=== PATIENT | female | born 1990 | race Caucasian/White ===

== ENCOUNTER 2016-09-19 15:40 | Emergency (ER) | payer OTHER ==
--- NOTE | 2016-09-19 16:10 | ED ---
General Adult HPI - General Chief complaint: Extremity Problem,Nontraumatic Stated complaint: Leg Pain Time Seen by Provider: 09/19/16 16:05 Source: patient, RN notes reviewed Mode of arrival: ambulatory Limitations: no limitations - History of Present Illness Initial comments: This is a 26-year-old female who presents with bilateral ankle pain. Patient states she had nerve conduction studies Saturday and has had soreness to the bilateral ankles and shinsand the areas where a needle was used for the study. Patient states she has a history of bilateral ankle surgery after a fall a few years ago. Patient states she's had pain to bilateral aspects of both ankles ever since and this was the reason for the nerve studies. Patient is able to ambulate without difficulty. Patient denies any numbness/tingling or weakness but patient states she feels like her legs are going to give out when she walks. Patient has had no injury or fall. Patient states she has a past medical history significant for degenerative disc disease and has chronic back pain. Patient denies any recent injury to the back. Patient also complains of a cough she has had for one week. Patient also admits to runny nose. Patient diagnosed with bronchitis and given a Z-Tony. Patient states she has some chills but no measured fever. Patient states the cough persisted even after her course of antibiotics. Patient denies any chance of being . Patient denies any recent fever, chills, shortness breath, chest pain, abdominal pain, nausea/vomiting/diarrhea, back pain, hematuria, headache, or visual changes, or any other complaints. - Related Data Home Medications Medication Instructions Recorded Confirmed Gabapentin [Neurontin] 300 mg PO BID 09/19/16 09/19/16 Previous Rx's Medication Instructions Recorded Ibuprofen [Motrin] 600 mg PO Q8HR PRN #20 tab 05/16/15 Allergies Allergy/AdvReac Type Severity Reaction Status Date / Time ciprofloxacin [From Cipro] AdvReac Unknown Verified 09/19/16 15:57 ciprofloxacin HCl AdvReac Unknown Verified 09/19/16 15:57 [From Cipro] Penicillins AdvReac Unknown Verified 09/19/16 15:57 Tetanus Vaccines and Toxoid AdvReac Unknown Verified 09/19/16 15:57 [Tetanus Vaccines & Toxoid] Review of Systems ROS Statement: Those systems with pertinent positive or pertinent negative responses have been documented in the HPI. ROS Other: All systems not noted in ROS Statement are negative. Past Medical History Past Medical History: No Reported History Additional Past Medical History / Comment(s): buldging discs, left breast lump History of Any Multi-Drug Resistant Organisms: None Reported Past Surgical History: Adenoidectomy, Section, Tonsillectomy Additional Past Surgical History / Comment(s): left ankle, Past Psychological History: No Psychological Hx Reported Smoking Status: Current every day smoker Past Alcohol Use History: Occasional Past Drug Use History: None Reported General Exam - General Exam Comments Initial Comments: General: The patient is awake and alert, in no distress, and does not appear acutely ill. Eye: Pupils are equal, round and reactive to light, extra-ocular movements are intact. No nystagmus. There is normal conjunctiva bilaterally. No signs of icterus. Ears: TMs pink and pearly with intact cone of light bilaterally. Normal external ear canals Nose: Nasal turbinates pink and moist Mouth and throat: There are moist mucous membranes and no oral lesions. Neck: The neck is supple, there is no tenderness or JVD. Cardiovascular: There is a regular rate and rhythm. No murmur, rub or gallop is appreciated. Respiratory: Lungs are clear to auscultation, respirations are non-labored, breath sounds are equal. No wheezes, stridor, rales, or rhonchi. Musculoskeletal: Generalized tenderness to bilateral shins and ankles. There is no swelling, erythema or ecchymosis. Patient has full range of motion, is ambulatory in the EC, strength is 5/5 and sensation intact. Posterior tibial pulses are 2+ bilaterally. Capillary refill is normal at less than 2 seconds. Neurological: A&O x 3. CN II-XII intact, There are no obvious motor or sensory deficits. Coordination appears grossly intact. Speech is normal. Skin: Skin is warm and dry and no rashes or lesions are noted. Psychiatric: Cooperative, appropriate mood & affect, normal judgment. Limitations: no limitations Course Vital Signs 09/19/16 09/19/16 15:51 17:39 Temperature 97.6 F 98.2 F Pulse Rate 91 86 Respiratory 18 16 Rate Blood Pressure 134/82 132/80 O2 Sat by Pulse 99 99 Oximetry Medical Decision Making - Medical Decision Making This is a 26-year-old female who presents with bilateral craft and ankle pain along with cough 7 days. On physical exam patient is afebrile in the EC. Lungs are clear to auscultation. Dry cough present on exam. Generalized tenderness to bilateral shins and ankles. There is no swelling, erythema or ecchymosis. Patient has full range of motion, is ambulatory in the EC, strength is 5/5 and sensation intact. Posterior tibial pulses are 2+ bilaterally. Capillary refill is normal at less than 2 seconds. A chest x-ray was done and reviewed showing: No acute cardiopulmonary process. Reported by Dr. Gonzalez. Influenza was checked and was negative. An x-ray lumbar spine was done and reviewed showing: Degenerative disc disease, consider lumbar MRI. Patient states that she knows about her history of degenerative disc disease. I discussed that the tenderness she is feeling could be caused by the procedure she had on Saturday for nerve testing. I discussed rest, ice, elevate and Tylenol and Motrin for the pain. I discussed that patient most likely has a viral bronchitis causing her cough. I discussed [id number]-[id number] cough medicines. I discussed Tylenol and Motrin for any pain. I discussed that patient needs to follow-up with her film waxer who ordered the nerve studies in 1-2 days. I discussed return parameters. Discussed that patient should follow up with PCP in one to 2 days or return to the EC for any worsening symptoms or for any further concerns. Patient was receptive to this plan and patient will be discharged home. I discussed this case with attending physician Dr. Grey who agrees the plan as stated above. - Lab Data Lab Results 09/19/16 Range/Units 16:35 Influenza Type A RNA Not Detected (Not Detectd) Influenza Type B (PCR) Not Detected (Not Detectd) Disposition Clinical Impression: Bilateral ankle pain, Viral bronchitis Disposition: HOME SELF-CARE Condition: Good Instructions: Acute Bronchitis (ED) Additional Instructions: Please rest, ice, elevate and use Tylenol and Motrin for any pain. Please follow-up with your doctor in 1-2 days. Please continue [id number] decongestants and her cough medicines. Please continue to drink plenty of fluids and use Tylenol or Motrin for any fever. Please follow-up with family doctor in the next 2 days of symptoms have not improved. Please return to emergency room if the symptoms increase or worsen or for any other concerns. Referrals: Breann Rosenberg MD [Primary Care Provider] - 1-2 days Time of Disposition: 17:32
--- NOTE | 2016-09-19 16:33 | XR ---
EXAMINATION TYPE: XR chest 2V DATE OF EXAM: 09/19/2016 4:29 PM COMPARISON: Prior chest x-ray 04 October 2010 HISTORY: Cough and congestion TECHNIQUE: Frontal and lateral views of the chest are obtained on 3 images. FINDINGS: There is no focal air space opacity, pleural effusion, or pneumothorax seen. The cardiac silhouette size is within normal limits. The osseous structures are intact. IMPRESSION: No acute cardiopulmonary process.
--- NOTE | 2016-09-19 16:34 | XR ---
Lumbar spine HISTORY: Lower extremity weakness, pain and swelling 3 views of the lumbar spine, correlation to prior exam 11 February 2014 There is a levoscoliosis centered at L2. Lumbar vertebral bodies show preserved height, alignment, sybil ne mineralization. Loss of disc height present at L5-S1, there is associated spondylosis. IMPRESSION: Degenerative disc disease, consider lumbar MRI.
[2016-09-19 17:40] VITALS: BP 132/80; PULSE 86; RESP 16; TEMP 98.2
== END 2016-09-19 17:39 | disposition home or self-care (01) ==
LOC: EC 15:40
DX: M25.572 Pain in left ankle and joints of left foot (principal); M25.571 Pain in right ankle and joints of right foot; J20.8 Acute bronchitis due to other specified organisms; M51.36 Other intervertebral disc degeneration, lumbar region; F17.200 Nicotine dependence, unspecified, uncomplicated; Z88.0 Allergy status to penicillin; Z88.4 Allergy status to anesthetic agent; Z88.1 Allergy status to other antibiotic agents; Z79.899 Other long term (current) drug therapy
CPT/HCPCS: 71020; 72100; 87502; 99283

== ENCOUNTER → 2016-10-04 | Outpatient (CLI) | payer OTHER ==
--- NOTE | 2016-10-04 09:30 | USB ---
Reason for exam: follow-up at short interval from prior study. History: Family history of breast cancer in mother at age 28, breast cancer in paternal grandmother, and breast cancer in maternal aunt. Taking hormonal contraceptives for 1 year. 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 US Breast LT Left breast ultrasound includes all four quadrants, the retroareolar region and axilla. Finding demonstrates a 0.8 x 0.5 x 0.8cm oval, solid, hypoechoic lesion at 12 o'clock unchaged from previous and a 0.4 x 0.3 x 0.8cm oval, mixed lesion at 3 o'clock, probable lymph node. These results were verbally communicated with the patient and result sheet given to the patient on 10/04/16. ASSESSMENT: Benign, BI-RAD 2 RECOMMENDATION: Routine screening mammogram of both breasts. Per ACS guidelines.
== END ==
LOC: RADUSWWP 08:36
PROVIDERS: ATTEND Obstetrics & Gynecology
DX: R92.8 Other abnormal and inconclusive findings on diagnostic imaging of breast (principal)

== ENCOUNTER → 2016-11-23 | Outpatient (CLI) | payer OTHER ==
--- NOTE | 2016-11-23 23:13 | MR ---
EXAMINATION TYPE: MR lumbar spine wo con DATE OF EXAM: 11/23/2016 COMPARISON: NONE HISTORY: Low back pain x 5 years TECHNIQUE: T1 and T2 axial and sagittal images of the lumbar spine are submitted. FINDINGS: There is suggestion of abnormal signal within the posterior margin of the conus medullaris which is not included on the axial images.. At L1-2 there is no disc herniation, canal stenosis, or foraminal encroachment. At L2-3 there is no disc herniation, canal stenosis, or foraminal encroachment At L3-4 there is no disc herniation, canal stenosis, or foraminal encroachment. Hypertrophy of the fa cets. Tiny 7 mm cyst related to the posterior margin of the left facet appears outside of the spinal canal and within the paraspinal soft tissues. Still likely represents small synovial cyst. At L4-5 there is no disc herniation, canal stenosis, or foraminal encroachment. Hypertrophic change o f the facets. At L5-S1 there is disc desiccation with a large right paracentral disc herniation. There likely is ma ss effect upon the right nerve root. Facet arthropathy noted. IMPRESSION: 1. Large right paracentral disc herniation L5-S1 pressure the thecal sac and probable right-sided ner ve root impingement. Correlate clinically. 2. Question of abnormal signal within the conus medullaris posteriorly. Although this may be artifact ual this level was not included on the axial images of the lumbar spine MRI. Correlation with thoraci c spine MRI recommended to exclude spinal cord lesion.
== END | disposition home or self-care (01) ==
LOC: RADMRIMAIN 19:49
PROVIDERS: ATTEND Psychiatry & Neurology Pain Medicine
DX: M51.27 Other intervertebral disc displacement, lumbosacral region (principal); Z88.1 Allergy status to other antibiotic agents
CPT/HCPCS: 72148

== ENCOUNTER → 2016-12-04 | Outpatient (CLI) | payer OTHER ==
[2016-12-04 12:40] LABS: HCG,Quantitative Serum 384.6 mIU/mL
[2016-12-04 17:07] LABS: Hemoglobin A1C 5.2 % (4.2-6.1)
== END | disposition home or self-care (01) ==
LOC: LABWHC1 11:39
PROVIDERS: ATTEND Obstetrics & Gynecology
DX: O99.354 Diseases of the nervous system complicating childbirth (principal); G62.9 Polyneuropathy, unspecified; Z3A.00 Weeks of gestation of pregnancy not specified; Z79.899 Other long term (current) drug therapy
CPT/HCPCS: 36415; 82607; 83036; 84439; 84443; 84481; 84702

== ENCOUNTER → 2016-12-06 | Outpatient (CLI) | payer OTHER | END | disposition home or self-care (01) | LOC: LABWHC1 12:57 | PROVIDERS: ATTEND Obstetrics & Gynecology | DX: Z34.90 Encounter for supervision of normal pregnancy, unspecified, unspecified trimester (principal); Z3A.00 Weeks of gestation of pregnancy not specified | CPT/HCPCS: 36415; 84702 ==

== ENCOUNTER 2016-12-14 20:17 | Emergency (ER) | payer OTHER ==
[2016-12-14] MEDS ORDERED: SODIUM CHLORIDE 0.9% 1,000 ML IV STA (21:00)
[2016-12-14 21:33] LABS: Basophils % (A) 0 %; CH 32.2; Eosinophils # (A) 0.1 k/uL (0-0.7); Eosinophils % (A) 0 %; HCT 45.6 % (34.0-46.0); HDW 2.15; HGB 15.4 gm/dL (11.4-16.0); Luc # (Auto) 0.27; Luc % (Auto) 2; Lymphocytes % (A) 28 %; MCH 31.3 pg (25.0-35.0); MCHC 33.8 g/dL (31.0-37.0); MCV 92.4 fL (80.0-100.0); Mean Platelet Volume 7.3; Monocytes # (A) 0.6 k/uL (0-1.0); Monocytes % (A) 4 %; Neutrophils # (A) 9.4 k/uL (1.3-7.7); Neutrophils % (A) 65 %; RBC 4.94 m/uL (3.80-5.40); RDW 12.5 % (11.5-15.5); WBC 14.4 k/uL (3.8-10.6); WBC (Perox) 13.96
[2016-12-14 21:35] LABS: Appearance,Urine Cloudy (Clear); Bacteria,Urine Rare /hpf; Bilirubin,Urine Negative (Negative); Glucose,Urine (UA) Negative (Negative); Ketones,Urine Negative (Negative); Leukocyte Esterase,Urine Negative (Negative); Mucus,Urine Rare /hpf; Nitrite,Urine Negative (Negative); PH, Urine 5.5 (5.0-8.0); Particle Count 4028; Protein,Urine Negative (Negative); RBC,Urine 180 /hpf (0-5); Specific Gravity,Urine 1.007 (1.001-1.035); Squamous Epithelial Cell,Urine 2 /hpf (0-4); UA Billing (MACRO vs. MICRO) MICRO; Urobilinogen,Urine <2.0 mg/dL (<2.0); WBC,Urine 16 /hpf (0-5)
[2016-12-14 21:43] LABS: ALT 35 U/L (9-52); AST 19 U/L (14-36); Alkaline Phosphatase 65 U/L (38-126); Anion Gap 9 mmol/L; Blood Urea Nitrogen 5 mg/dL (7-17); Calcium 9.5 mg/dL (8.4-10.2); Carbon Dioxide 19 mmol/L (22-30); Chloride 110 mmol/L (98-107); Glucose 86 mg/dL (74-99); Non-African American GFR(MDRD) >60 (>60 ml/min/1.73 sqM); Potassium 3.8 mmol/L (3.5-5.1); Sodium 138 mmol/L (137-145); Total Protein 6.7 g/dL (6.3-8.2)
--- NOTE | 2016-12-14 21:55 | ED ---
Female Urogenital HPI - General Chief complaint: Urogenital Stated complaint: vaginal bleeding/early Time Seen by Provider: 12/14/16 20:54 Source: patient, RN notes reviewed Mode of arrival: ambulatory Limitations: no limitations - History of Present Illness Initial comments: 26-year-old female presents to the emergency Department chief complaint of vaginal bleeding in . Patient does not know how far along she is. They state that she started to have some vaginal bleeding today cramping that started yesterday. Patient is a . Patient states that she has not had any nausea or vomiting with this. Patient states the bleeding is heavy like a period. Patient denies any passage of tissue. Patient states she is not currently having any other symptoms. Patient denies any recent fever, chills, shortness of breath, chest pain, back pain, nausea vomiting, numbness or tingling, dysuria or hematuria, constipation or diarrhea, headaches or visual changes, or any other current symptoms. - Related Data Home Medications Medication Instructions Recorded Confirmed No Known Home Medications [No 12/14/16 12/14/16 Known Home Medications] Allergies Allergy/AdvReac Type Severity Reaction Status Date / Time cinnamon Allergy Swelling Verified 12/14/16 21:07 Fish Containing Products Allergy Rash/Hives Verified 12/14/16 21:07 [Fish] ciprofloxacin [From Cipro] AdvReac Unknown Verified 12/14/16 21:07 ciprofloxacin HCl AdvReac Unknown Verified 12/14/16 21:07 [From Cipro] Penicillins AdvReac Unknown Verified 12/14/16 21:07 Tetanus Vaccines and Toxoid AdvReac Unknown Verified 12/14/16 21:07 [Tetanus Vaccines & Toxoid] Review of Systems ROS Statement: Those systems with pertinent positive or pertinent negative responses have been documented in the HPI. ROS Other: All systems not noted in ROS Statement are negative. Past Medical History Past Medical History: No Reported History Additional Past Medical History / Comment(s): buldging discs, left breast lump History of Any Multi-Drug Resistant Organisms: None Reported Past Surgical History: Adenoidectomy, Section, Tonsillectomy Additional Past Surgical History / Comment(s): left ankle, Past Psychological History: No Psychological Hx Reported Smoking Status: Current every day smoker Past Alcohol Use History: Occasional Past Drug Use History: None Reported General Exam Limitations: no limitations General appearance: alert, in no apparent distress Neck exam: Present: normal inspection. Absent: tenderness, meningismus, lymphadenopathy Respiratory exam: Present: normal lung sounds bilaterally. Absent: respiratory distress, wheezes, rales, rhonchi, stridor Cardiovascular Exam: Present: regular rate, normal rhythm, normal heart sounds. Absent: systolic murmur, diastolic murmur, rubs, gallop, clicks GI/Abdominal exam: Present: soft, normal bowel sounds. Absent: distended, tenderness, guarding, rebound, rigid External exam: Present: normal external exam Speculum exam: Present: vaginal bleeding. Absent: tissue By manual exam: Present: normal by manual exam Neurological exam: Present: alert, oriented X3 Psychiatric exam: Present: normal affect, normal mood Skin exam: Present: warm, dry, intact, normal color. Absent: rash Course Vital Signs 12/14/16 20:19 Temperature 98.8 F Pulse Rate 95 Respiratory 20 Rate Blood Pressure 177/77 O2 Sat by Pulse 99 Oximetry Medical Decision Making - Medical Decision Making 26 yo female Presents emergency Department chief complaint of vaginal bleeding in . This time ultrasound is reviewed that shows possibly early versus threatened miscarriage. At this time we did discuss the patient can follow-up in 2 days for repeat hCG. We discussed return parameters. We did do a pelvic exam and did discuss STD testing that they shouldn't states she does not want to have this done. At this time HAVE been answered. Patient will be discharged home. - Lab Data Result diagrams: 12/14/16 21:15 12/14/16 21:15 Lab Results 12/14/16 12/14/16 12/14/16 Range/Units 21:00 21:15 21:15 WBC 14.4 H (3.8-10.6) k/uL RBC 4.94 (3.80-5.40) m/uL Hgb 15.4 (11.4-16.0) gm/dL Hct 45.6 (34.0-46.0) % MCV 92.4 (80.0-100.0) fL MCH 31.3 (25.0-35.0) pg MCHC 33.8 (31.0-37.0) g/dL RDW 12.5 (11.5-15.5) % Plt Count 286 (150-450) k/uL Neutrophils % 65 % Lymphocytes % 28 % Monocytes % 4 % Eosinophils % 0 % Basophils % 0 % Neutrophils # 9.4 H (1.3-7.7) k/uL Lymphocytes # 4.0 (1.0-4.8) k/uL Monocytes # 0.6 (0-1.0) k/uL Eosinophils # 0.1 (0-0.7) k/uL Basophils # 0.0 (0-0.2) k/uL Sodium 138 (137-145) mmol/L Potassium 3.8 (3.5-5.1) mmol/L Chloride 110 H (98-107) mmol/L Carbon Dioxide 19 L (22-30) mmol/L Anion Gap 9 mmol/L BUN 5 L (7-17) mg/dL Creatinine 0.54 (0.52-1.04) mg/dL Est GFR (MDRD) Af Amer >60 (>60 ml/min/1.73 sqM) Est GFR (MDRD) Non-Af >60 (>60 ml/min/1.73 sqM) Glucose 86 (74-99) mg/dL Calcium 9.5 (8.4-10.2) mg/dL Total Bilirubin 1.0 (0.2-1.3) mg/dL AST 19 (14-36) U/L ALT 35 (9-52) U/L Alkaline Phosphatase 65 (38-126) U/L Total Protein 6.7 (6.3-8.2) g/dL Albumin 4.1 (3.5-5.0) g/dL Urine Color Yellow Urine Appearance Cloudy H (Clear) Urine pH 5.5 (5.0-8.0) Ur Specific Caldwell 1.007 (1.001-1.035) Urine Protein Negative (Negative) Urine Glucose (UA) Negative (Negative) Urine Ketones Negative (Negative) Urine Blood Large H (Negative) Urine Nitrite Negative (Negative) Urine Bilirubin Negative (Negative) Urine Urobilinogen <2.0 (<2.0) mg/dL Ur Leukocyte Esterase Negative (Negative) Urine RBC 180 H (0-5) /hpf Urine WBC 16 H (0-5) /hpf Ur Squamous Epith Cells 2 (0-4) /hpf Urine Bacteria Rare H (None) /hpf Urine Mucus Rare H (None) /hpf Blood Type Blood Type Recheck 12/14/16 Range/Units 21:15 WBC (3.8-10.6) k/uL RBC (3.80-5.40) m/uL Hgb (11.4-16.0) gm/dL Hct (34.0-46.0) % MCV (80.0-100.0) fL MCH (25.0-35.0) pg MCHC (31.0-37.0) g/dL RDW (11.5-15.5) % Plt Count (150-450) k/uL Neutrophils % % Lymphocytes % % Monocytes % % Eosinophils % % Basophils % % Neutrophils # (1.3-7.7) k/uL Lymphocytes # (1.0-4.8) k/uL Monocytes # (0-1.0) k/uL Eosinophils # (0-0.7) k/uL Basophils # (0-0.2) k/uL Sodium (137-145) mmol/L Potassium (3.5-5.1) mmol/L Chloride (98-107) mmol/L Carbon Dioxide (22-30) mmol/L Anion Gap mmol/L BUN (7-17) mg/dL Creatinine (0.52-1.04) mg/dL Est GFR (MDRD) Af Amer (>60 ml/min/1.73 sqM) Est GFR (MDRD) Non-Af (>60 ml/min/1.73 sqM) Glucose (74-99) mg/dL Calcium (8.4-10.2) mg/dL Total Bilirubin (0.2-1.3) mg/dL AST (14-36) U/L ALT (9-52) U/L Alkaline Phosphatase (38-126) U/L Total Protein (6.3-8.2) g/dL Albumin (3.5-5.0) g/dL Urine Color Urine Appearance (Clear) Urine pH (5.0-8.0) Ur Specific Caldwell (1.001-1.035) Urine Protein (Negative) Urine Glucose (UA) (Negative) Urine Ketones (Negative) Urine Blood (Negative) Urine Nitrite (Negative) Urine Bilirubin (Negative) Urine Urobilinogen (<2.0) mg/dL Ur Leukocyte Esterase (Negative) Urine RBC (0-5) /hpf Urine WBC (0-5) /hpf Ur Squamous Epith Cells (0-4) /hpf Urine Bacteria (None) /hpf Urine Mucus (None) /hpf Blood Type A Positive Blood Type Recheck A Pos Disposition Clinical Impression: Threatened Disposition: HOME SELF-CARE Condition: Stable Instructions: Threatened Miscarriage (ED) Additional Instructions: Please use medication as discussed. Please follow up with family doctor if symptoms have not improved over the next two days. Please return to the emergency room if your symptoms increase or worsen or for any other concerns. Referrals: Breann Rosenberg MD [Primary Care Provider] - 1-2 days Time of Disposition: 22:22
--- NOTE | 2016-12-14 21:58 | US ---
EXAMINATION TYPE: US OB <=14 wks transvag DATE OF EXAM: 12/14/2016 COMPARISON: NONE CLINICAL HISTORY: Pain. Bleeding and cramping x 2 hours, 2, para 1 EXAM PERFORMED: Transvaginal (TV) and Transabdominal (TA) EXAM MEASUREMENTS: GESTATIONAL AGE / DATING Physician Established: Not established yet Dates by LMP: Unknown Dates by First Scan: This is 1st scan Dates by Current Scan for: ( 5 weeks/2 days) By gestational sac measurement EDC: 08/14/2017 MATERNAL ANATOMY Uterus: 9.1 x 3.9 x 4.5cm, anteverted Right Ovary: 3.8 x 3.7 x 2.6cm, 2.9 x 1.4 x 2.2cm cystic area Left Ovary: not seen due to overlying bowel gas Post CDS / Adnexa: small amount of free fluid in posterior cul de sac Presence of free fluid: yes Presence of corpus luteal cyst: right ovary: 2.3 x 1.4 x 1.1cm hypoechoic area with peripheral vascul arity, probable corpus luteum Presence of subchorionic bleed: no GESTATION / SURVEY No pole seen at this time MSD: 1.2cm (5 weeks/2 days) Yolk Sac (normal less than 6mm): 3.9mm Date of LMP: Unknown Beta HcG (if available): Not available at time of exam No pole seen at this time, gestational sac and yolk sac seen at this time, 5 weeks 2 days by ge stational sac measurement IMPRESSION: There is evidence of a very early intrauterine gestational sac. No pole or yolk sac is seen. No adnexal mass seen to suggest ectopic . Follow-up exam in 2 weeks is recommended to confirm a living fetus if clinically indicated. Minimal free fluid in the cul-de-sac. 3 x 1.4 cm right ovarian cyst.
[2016-12-14 22:33] VITALS: BP 118/70; PULSE 67; RESP 16; TEMP 97.8
== END 2016-12-14 22:31 | disposition home or self-care (01) ==
LOC: EC 20:17
DX: O20.0 Threatened abortion (principal); O99.331 Smoking (tobacco) complicating pregnancy, first trimester; F17.200 Nicotine dependence, unspecified, uncomplicated; Z3A.01 Less than 8 weeks gestation of pregnancy; Z88.7 Allergy status to serum and vaccine; Z91.013 Allergy to seafood; Z91.018 Allergy to other foods; Z88.0 Allergy status to penicillin; Z88.1 Allergy status to other antibiotic agents
CPT/HCPCS: 36415; 76801; 76817; 80053; 81001; 84702; 85025; 86900; 86901; 87086; 96360; 99284

== ENCOUNTER → 2016-12-17 | Outpatient (CLI) | payer OTHER | END | disposition home or self-care (01) | LOC: LABWHC1 10:07 | PROVIDERS: ATTEND Emergency Medicine | DX: Z34.90 Encounter for supervision of normal pregnancy, unspecified, unspecified trimester (principal) | CPT/HCPCS: 36415; 84702 ==

== ENCOUNTER → 2017-01-01 | Outpatient (CLI) | payer OTHER ==
--- NOTE | 2017-01-01 14:20 | US ---
EXAMINATION TYPE: US OB <= 14 wk fetus DATE OF EXAM: 01/01/2017 COMPARISON: US December 14, 2016 CLINICAL HISTORY: F/U Abnormal in ER Z36. EXAM PERFORMED: Transabdominal (TA) pelvic ultrasound EXAM MEASUREMENTS: GESTATIONAL AGE / DATING Physician Established: not established Dates by LMP: unknown Dates by First Scan: ( 7 weeks/6 days) EDC: 08/14/2017, by gestational sac only Dates by Current Scan for: (8 weeks/2 days) EDC: 08/11/2017 MATERNAL ANATOMY Uterus: 11.3 x 4.7 x 6.4 Right Ovary: 3.3 x 4.1 x 3.8 Left Ovary: 2.9 x 2.9 x 1.8 Post CDS / Adnexa: wnl Presence of free fluid: none Presence of corpus luteal cyst: right ovary measuring 2.8 x 1.9 x 2.1 cm GESTATION / SURVEY CRL: 1.8 cm (8 weeks/2 days) Yolk Sac (normal less than 6mm): 0.3 cm Heart Rate: 163 bpm Rhythm: Normal IUP: Viable IUP Date of LMP: unknown viable IUP Single live intrauterine gestation is now present as gestational sac, yolk sac, and pole are se en. No free fluid is seen in pelvic cul-de-sac. Both ovaries are present. There is no suspicious extraovarian adnexal mass. Within right ovary there is 2.8 cm peripheral anechoic lesion likely reflecting corpus luteal cyst. IMPRESSION: Single live intrauterine gestation is now identified, mean crown-rump length is 1.8 cm corresponding to 8 week 2 day old fetus.
== END | disposition home or self-care (01) ==
LOC: RADUSWWP 13:46
PROVIDERS: ATTEND Obstetrics & Gynecology
DX: Z36 Encounter for antenatal screening of mother (principal); Z3A.08 8 weeks gestation of pregnancy
CPT/HCPCS: 76801

== ENCOUNTER 2017-04-30 20:17 | Outpatient (CLI) | payer OTHER ==
[2017-04-30 20:45] LABS: Appearance,Urine Cloudy (Clear); Bacteria,Urine Moderate /hpf; Bilirubin,Urine Negative (Negative); Glucose,Urine (UA) Negative (Negative); Ketones,Urine Negative (Negative); Leukocyte Esterase,Urine Negative (Negative); Nitrite,Urine Negative (Negative); Particle Count 5402; Protein,Urine Negative (Negative); RBC,Urine 1 /hpf (0-5); Specific Gravity,Urine 1.003 (1.001-1.035); Squamous Epithelial Cell,Urine 8 /hpf (0-4); UA Billing (MACRO vs. MICRO) MICRO; Urobilinogen,Urine <2.0 mg/dL (<2.0); WBC,Urine 3 /hpf (0-5)
[2017-04-30 21:46] VITALS: BP 138/65; PULSE 92; RESP 18; TEMP 97.6
--- NOTE | 2017-04-30 21:59 | P.MSEPDOC ---
Presenting Problems - Arrival Data Date of Arrival on Unit: 04/30/17 Time of Arrival on Unit: 20:17 Mode of Transport: Wheelchair - Complaint OB-Reason for Admission/Chief Complaint: Pain Comment: left sided abdominal pressure, shooting vaginal pains, and pain with urination Medical History - Information : 2 Para: 1 Term: 1 : 0 Abortions: Spontaneous or Elective: 0 Number of Living Children: 1 - Gestational Age Gestational Age by SANDEEP (wks/days): 25 Weeks and 6 Days - History Complications: Prior Review of Systems - Review of Systems Constitutional: No problems Breast: No problems ENT: No problems Cardiovascular: No problems Respiratory: No problems Gastrointestinal: No problems Genitourinary: Dysuria Musculoskeletal: No problems Neurological: No problems Skin: No problems Comment: pain with urination Vital Signs - Temperature Temperature: 97.6 F Temperature Source: Temporal Artery Scan - Pulse Right Sitting Brachial Pulse Rate: 92 Pulse Assessment Method: Automatic Cuff - Respirations Respiratory Rate: 18 Oxygen Delivery Method: Room Air O2 Sat by Pulse Oximetry: 96 - Blood Pressure Right Arm Sitting Blood Pressure: 138/65 Blood Pressure Mean: 89 Blood Pressure Source: Automatic Cuff Medical Screen Scoring (Pre) - Cervical Exam Dilation: 0 cm = 0 Membranes: Intact - Uterine Contractions Frequency: N/A Duration: N/A Intensity: N/A - Maternal Vital Signs Maternal Temperature: N/A Maternal Blood Pressure: N/A Signs of Preeclampsia: N/A Maternal Respirations: N/A - Pain Assessment Pain Location and Character: Left, Abdomen Pain Scale Used: Numeric (1 - 10) Pain Intensity: 7 Pain Management Goal: 2 Pain Description: *Acute, Pressure Pain Duration: 2 Pain Duration Units: Days Pain Behavior: Vocalization Pain Aggravating Factors: None - Maternal Trauma Maternal Trauma: N/A - Assessment Baseline FHR: 150 Heart Rate - NICHD Category: Category I (Normal) = 0 Position: N/A Station: N/A - Total Score Total Score (Pre): 0 - Level of Risk Level of Risk: Low (0-5) Physician Notification (Pre) - Physician Notified Physician Notified Date: 04/30/17 Physician Notified Time: 21:29 Physician/Practitioner Notifed:: ahsley Spoke With: ashley New Order Received: Yes - Notification Comment Comment: d/c home Disposition - Disposition OB Disposition: Discharge to home Discharge Date: 04/30/17 Discharge Time: 21:35 I agree with the RN Medical Screening Exam: Yes Risk & Benefit of care provided described in d/c instruction: Yes Diagnosis: FALSE LABOR BEFORE 37 COMPLETED WEEKS OF GEST, SECOND TRI
== END 2017-04-30 21:35 | disposition home or self-care (01) ==
LOC: FBPOP 20:17
PROVIDERS: ATTEND Obstetrics & Gynecology
DX: O47.02 False labor before 37 completed weeks of gestation, second trimester (principal); Z3A.25 25 weeks gestation of pregnancy
CPT/HCPCS: 81001; G0463; 99213

== ENCOUNTER → 2017-05-03 | Outpatient (CLI) | payer OTHER ==
[2017-05-03 10:36] LABS: CH 32.1; CHCM 33.1; HCT 37.8 % (34.0-46.0); HDW 2.33; HGB 12.3 gm/dL (11.4-16.0); MCH 31.8 pg (25.0-35.0); MCHC 32.5 g/dL (31.0-37.0); MCV 97.7 fL (80.0-100.0); Mean Platelet Volume 7.6; RBC 3.87 m/uL (3.80-5.40); RDW 14.1 % (11.5-15.5); WBC 13.8 k/uL (3.8-10.6)
== END | disposition home or self-care (01) ==
LOC: LABWHC1 09:16
PROVIDERS: ATTEND Obstetrics & Gynecology
DX: Z34.82 Encounter for supervision of other normal pregnancy, second trimester (principal); Z3A.00 Weeks of gestation of pregnancy not specified
CPT/HCPCS: 36415; 82950; 85027

== ENCOUNTER 2017-07-22 22:24 | Outpatient (CLI) | payer OTHER ==
[2017-07-22 22:56] LABS: Appearance,Urine Clear (Clear); Bilirubin,Urine Negative (Negative); Blood,Urine Negative (Negative); Color,Urine Light Yellow; Glucose,Urine (UA) Negative (Negative); Ketones,Urine Negative (Negative); Leukocyte Esterase,Urine Negative (Negative); Nitrite,Urine Negative (Negative); PH, Urine 6.5 (5.0-8.0); Protein,Urine Negative (Negative); Specific Gravity,Urine 1.004 (1.001-1.035); Urobilinogen,Urine <2.0 mg/dL (<2.0)
[2017-07-22 23:18] VITALS: BP 147/71; PULSE 84; RESP 18; TEMP 97.8
--- NOTE | 2017-07-31 08:54 | P.MSEPDOC ---
Presenting Problems - Arrival Data Date of Arrival on Unit: 07/22/17 Time of Arrival on Unit: 22:25 Mode of Transport: Ambulatory - Complaint OB-Reason for Admission/Chief Complaint: Pain Medical History - Information : 2 Para: 1 Term: 1 : 0 Abortions: Spontaneous or Elective: 0 Number of Living Children: 1 - Gestational Age Gestational Age by SANDEEP (wks/days): 37 Weeks and 1 Days - History Complications: Prior , Smoker Review of Systems - Review of Systems Constitutional: No problems Breast: No problems ENT: No problems Cardiovascular: No problems Respiratory: No problems Gastrointestinal: No problems Genitourinary: No problems Musculoskeletal: No problems Neurological: No problems Skin: No problems Comment: abd hernia Vital Signs - Temperature Temperature: 97.8 F Temperature Source: Temporal Artery Scan - Pulse Right Pulse Rate: 84 Pulse Assessment Method: Pulse Oximetry - Respirations Respiratory Rate: 18 O2 Sat by Pulse Oximetry: 98 - Blood Pressure Right Arm Blood Pressure: 147/71 Blood Pressure Mean: 96 Blood Pressure Source: Automatic Cuff Medical Screen Scoring (Pre) - Cervical Exam Dilation: 0 cm = 0 Membranes: Intact - Uterine Contractions Frequency: > 5 minutes apart = 1 Duration: N/A Intensity: N/A - Maternal Vital Signs Maternal Temperature: N/A Maternal Blood Pressure: N/A Signs of Preeclampsia: N/A Maternal Respirations: N/A - Assessment Baseline FHR: 150 Heart Rate - NICHD Category: Category I (Normal) = 0 NST: Reactive Position: N/A Station: N/A - Total Score Total Score (Pre): 1 - Level of Risk Level of Risk: Low (0-5) Physician Notification (Pre) - Physician Notified Physician Notified Date: 07/22/17 Physician Notified Time: 22:55 Physician/Practitioner Notifed:: Dr Santiago - Notification Comment Comment: reported on pts c/o pressure, occasional cntrx, cramping, possible leaking. reported on fhts, no cntrx, vitals, vag exam, UA sent. orders to d/c home with instructions if urine is clear. Disposition - Disposition OB Disposition: Discharge to home Discharge Date: 07/22/17 Discharge Time: 23:18 I agree with the RN Medical Screening Exam: Yes Risk & Benefit of care provided described in d/c instruction: Yes Diagnosis: FALSE LABOR AT OR AFTER 37 COMPLETED WEEKS OF GESTATION
== END 2017-07-22 23:43 | disposition home or self-care (01) ==
LOC: FBPOP 22:24
PROVIDERS: ATTEND Obstetrics & Gynecology
DX: O47.1 False labor at or after 37 completed weeks of gestation (principal); Z3A.37 37 weeks gestation of pregnancy
CPT/HCPCS: 59025; 84112; 81003; G0463; 99213

== ENCOUNTER 2017-08-03 00:19 | Inpatient (IN) | payer OTHER ==
[2017-08-03] MEDS ORDERED: LACTATED RINGERS 1,000 ML IV ONE (01:01)
[2017-08-03] MEDS ORDERED: CITRIC ACID-SODIUM CITRATE 15 ML CUP PO ONE (01:01)
[2017-08-03] MEDS ORDERED: CLINDAMYCIN 600 MG in DEXTROSE 5% IN WATER 50 ML IVPB STA ×2 (01:25)
--- NOTE | 2017-08-03 01:39 | P.HPOB ---
History of Present Illness H&P Date: 08/03/17 Chief Complaint: SROM 27 year old presents at 38 weeks 6 days with SROM at 2300 and contractions. She has a previous and desires repeat with TL. Review of Systems All systems: negative Constitutional: Denies chills, Denies fever Eyes: denies blurred vision, denies pain Ears, nose, mouth and throat: Denies headache, Denies sore throat Cardiovascular: Denies chest pain, Denies shortness of breath Respiratory: Denies cough Gastrointestinal: Denies abdominal pain, Denies diarrhea, Denies nausea, Denies vomiting Genitourinary: Denies dysuria, Denies hematuria Musculoskeletal: Denies myalgias Integumentary: Denies pruritus, Denies rash Neurological: Denies numbness, Denies weakness Psychiatric: Denies anxiety, Denies depression Endocrine: Denies fatigue, Denies weight change Past Medical History Past Medical History: No Reported History Additional Past Medical History / Comment(s): buldging discs, left breast lump. Obstetric history: First was . This is her second and she has seen Dr Santiago since 10 weeks. A+, abs neg, Rub Imm, Hep B neg, RPR NR. GBS neg. History of Any Multi-Drug Resistant Organisms: None Reported Past Surgical History: Adenoidectomy, Section, Tonsillectomy Additional Past Surgical History / Comment(s): bilateral foot/ankle/leg surgery Past Anesthesia/Blood Transfusion Reactions: No Reported Reaction Past Psychological History: No Psychological Hx Reported Smoking Status: Current every day smoker Past Alcohol Use History: None Reported Past Drug Use History: None Reported - Past Family History Mother Family Medical History: Cancer, Hypertension, Myocardial Infarction ([place]) Additional Family Medical History / Comment(s): stroke, lupus, lymes disease Medications and Allergies Home Medications Medication Instructions Recorded Confirmed Type Pedi Multivit No.25/Folic Acid 2 tab PO DAILY 06/01/17 08/03/17 History [Flintstones Multivit Chew Tab] Allergies Allergy/AdvReac Type Severity Reaction Status Date / Time cinnamon Allergy Anaphylaxis Verified 08/03/17 00:32 ciprofloxacin [From Cipro] Allergy Rash/Hives Verified 08/03/17 00:32 ciprofloxacin HCl Allergy Rash/Hives Verified 08/03/17 00:32 [From Cipro] Fish Containing Products Allergy Anaphylaxis Verified 08/03/17 00:32 [Fish] Penicillins Allergy Unknown Verified 08/03/17 00:32 Childhood shellfish derived [Shellfish] Allergy Anaphylaxis Verified 08/03/17 00:32 Tetanus Vaccines and Toxoid Allergy Unknown Verified 08/03/17 00:32 [Tetanus Vaccines & Toxoid] Childhood Exam Osteopathic Statement: *. No significant issues noted on an osteopathic structural exam other than those noted in the History and Physical/Consult. - Vital Signs Vital signs: Vital Signs Temp Pulse Resp BP Pulse Ox 08/03/17 01:03 97.4 F L 81 18 140/75 98 Intake and Output 08/02/17 08/02/17 08/03/17 14:59 22:59 06:59 Other: Weight 100.244 kg Patient Weight 08/03/17 06:59 Weight 100.244 kg Heart: RRR Lungs: CTAB ABdomen: soft, nontender Extremeties: neg kerri's Assessment and Plan (1) Previous section Current Visit: Yes Status: Acute Code(s): Z98.891 - HISTORY OF UTERINE SCAR FROM PREVIOUS SURGERY SNOMED Code(s): 485929230 (2) Family planning Current Visit: Yes Status: Acute Code(s): Z30.09 - ENCOUNTER FOR OTH GENERAL CNSL AND ADVICE ON CONTRACEPTION SNOMED Code(s): 816368463 Plan: 1. repeat low transverse with tubal ligation
[2017-08-03] MEDS ORDERED: diphenhydrAMINE 50 MG/ML 1 ML VIAL ONE (01:41)
[2017-08-03] MEDS ORDERED: MORPHINE SULFATE (PF) 0.3 MG/0.3 ML SYR ONE (01:41)
[2017-08-03] MEDS ORDERED: OXYTOCIN 10 UNIT/ML 1 ML VIAL ONE (01:41)
[2017-08-03] MEDS ORDERED: DEXAMETHASONE SOD PHOS (MDV) 100 MG/10 ML VIAL ONE (01:41)
[2017-08-03] MEDS ORDERED: KETOROLAC 30 MG/ML 1 ML VIAL ONE (01:41)
[2017-08-03] MEDS ORDERED: ONDANSETRON 4 MG/2 ML VIAL ONE (01:41)
[2017-08-03 01:46] LABS: Basophils % (A) 0 %; Eosinophils # (A) 0.1 k/uL (0-0.7); Eosinophils % (A) 0 %; HCT 39.2 % (34.0-46.0); HGB 12.8 gm/dL (11.4-16.0); Lymphocytes # (A) 3.5 k/uL (1.0-4.8); Lymphocytes % (A) 21 %; MCH 31.3 pg (25.0-35.0); MCHC 32.5 g/dL (31.0-37.0); MCV 96.2 fL (80.0-100.0); Mean Platelet Volume 7.6; Monocytes # (A) 0.9 k/uL (0-1.0); Monocytes % (A) 6 %; Neutrophils # (A) 11.9 k/uL (1.3-7.7); Neutrophils % (A) 72 %; Platelet Count 335 k/uL (150-450); RBC 4.08 m/uL (3.80-5.40); WBC 16.7 k/uL (3.8-10.6)
[2017-08-03] MEDS ORDERED: LACTATED RINGERS 1,000 ML IV SCH (02:00)
[2017-08-03] MEDS ORDERED: ACETAMINOPHEN TAB 325 MG TAB PO PRN (02:44)
[2017-08-03] MEDS ORDERED: METOCLOPRAMIDE 5 MG/ML 2 ML VIAL IVP PRN (02:44)
[2017-08-03] MEDS ORDERED: ZOLPIDEM 5 MG TAB PO PRN (02:44)
[2017-08-03] MEDS ORDERED: NALOXONE 0.4 MG/ML 1 ML VIAL IV PRN ×2 (02:44→07:10)
[2017-08-03] MEDS ORDERED: diphenhydrAMINE 50 MG CAP PO PRN (02:44)
[2017-08-03] MEDS ORDERED: LANOLIN CREAM 5 GM TUBE TOPICAL PRN (02:44)
[2017-08-03] MEDS ORDERED: ONDANSETRON 4 MG/2 ML VIAL IVP PRN ×2 (02:44→07:10)
[2017-08-03] MEDS ORDERED: diphenhydrAMINE 50 MG/ML 1 ML VIAL IVP PRN ×3 (02:44→07:10)
[2017-08-03] MEDS ORDERED: diphenhydrAMINE 25 MG CAP PO PRN (02:44)
[2017-08-03] MEDS ORDERED: SIMETHICONE 80 MG CHEWABLE PO PRN (02:44)
[2017-08-03] MEDS ORDERED: OXYTOCIN 20 UNITS/1000 ML NS 1,000 ML IV SCH (02:45)
--- NOTE | 2017-08-03 02:49 | P.OP ---
Date of Procedure: 08/03/17 Preoperative Diagnosis: 1. at 38 weeks 6 days 2. SROM 3. previous 4. Family planning Postoperative Diagnosis: 1. at 38 weeks 6 days 2. SROM 3. previous 4. Family planning Procedure(s) Performed: Repeat low transverse with tubal ligation Anesthesia: spinal Surgeon: Karen Kline Audio Visual Aids Director #1: Torrie Medina Estimated Blood Loss (ml): 400 IV fluids (ml): 1,600 Urine output (ml): 1,000 Pathology: other (placenta) Condition: stable Disposition: floor Operative Findings: viable male, 9, 10, weight 7# 5oz Description of Procedure: Patient was taken to the operating room where spinal anesthesia was found be adequate. She was prepped and draped in normal sterile fashion in dorsal supine position with a leftward tilt. Pfannenstiel skin incision was made the scalpel and carried through to the underlying layer of fascia with the scalpel. Fascia was incised in midline and carried bilaterally with the Bautista scissors. The superior aspect of the fascial incision was grasped with [place] clamps elevated and the underlying rectus muscles dissected off with the Bautista's. Attention was then turned to inferior aspect of same incision which in a similar fashion was grasped tented up and the underlying rectus muscles dissected off with the Bautista's. The rectus muscles were the midline and the peritoneum was identified tented up and entered sharply with the scalpel. The incision was extended superiorly and inferiorly with good visualization of the bladder. The bladder blade was inserted and the vesicouterine peritoneum was incised the Metzenbaums then carried bilaterally and bladder flap created digitally. A low transverse incision was then made on the uterus with the scalpel. This was carried bilaterally and digital manner. 's head delivered atraumatically, nose and mouth bulb suctioned, cord clamped and cut, handed off to waiting nurses. Apgars 9,10, weight 7 lbs. 5 oz. Placenta delivered manually, intact with three-vessel cord. The uterus is exteriorized and cleared of all clots and debris. The uterine incision was closed with 0 Vicryl in a running locked fashion. Second layer of the same sutures used in imbricating fashion to obtain excellent hemostasis. Both ovaries and tubes appeared normal. The right fallopian tube was grasped with a hemostat and a window was made in the mesosalpinx with the Bovie. The right fallopian tube was doubly ligated with 0 Vicryl and a portion was removed. The pedicles were cauterized with the Bovie. The left fallopian tube was grasped with a hemostat and a window was made in the mesosalpinx with the Bovie. The left fallopian tube was doubly ligated with 0 Vicryl and a portion was removed. The pedicles were cauterized with the Bovie. The uterus was placed back into the abdomen. The peritoneum was reapproximated using 2-0 Vicryl in a running fashion. The muscles were reapproximated using 2-0 Vicryl in interrupted fashion. The fascia was reapproximated using 0 Vicryl in a running fashion. The subcutaneous tissues closed with 3-0 Vicryl running fashion. The skin was closed anthony. Patient tolerated the procedure well, sponge and instrument counts were correct times 2 and she was taken to the recovery room in stable condition.
[2017-08-03] MEDS: LACTATED RINGERS 1,000 ML IV SCH ×2 (05:43→10:53)
[2017-08-03] MEDS: ACETAMINOPHEN IV (For NPO) 1,000 MG in EMPTY BAG 1 BAG IVPB SCH ×2 (06:37→15:00)
[2017-08-03] MEDS ORDERED: HYDROmorphone 0.5 MG/0.5 ML SYRINGE IVP PRN (07:10)
[2017-08-03] MEDS: KETOROLAC 30 MG/ML 1 ML VIAL IVP PRN ×3 (08:29→20:27)
[2017-08-03] MEDS: SENNOSIDES-DOCUSATE SODIUM 1 EACH TAB PO SCH ×2 (09:33→21:25)
[2017-08-03] MEDS ORDERED: HYDROcodone/APAP 5-325MG 1 EACH TAB PO PRN (10:47)
[2017-08-03] MEDS: MULTIVITAMINS, PEDIATRIC 1 EACH CHEWABLE PO SCH (14:36)
[2017-08-03] MEDS: HYDROcodone/APAP 5-325MG 1 EACH TAB PO PRN ×2 (16:57→23:20)
[2017-08-04] MEDS: KETOROLAC 30 MG/ML 1 ML VIAL IVP PRN (02:30)
[2017-08-04] MEDS: HYDROcodone/APAP 5-325MG 1 EACH TAB PO PRN ×3 (06:01→19:53)
[2017-08-04 08:17] VITALS: RESP 16
[2017-08-04] MEDS: MULTIVITAMINS, PEDIATRIC 1 EACH CHEWABLE PO SCH (08:32)
[2017-08-04] MEDS: IBUPROFEN 600 MG TAB PO PRN ×2 (08:32→17:09)
[2017-08-04 08:37] LABS: Basophils % (A) 0 %; Eosinophils # (A) 0.1 k/uL (0-0.7); Eosinophils % (A) 0 %; HCT 36.1 % (34.0-46.0); HGB 11.6 gm/dL (11.4-16.0); Lymphocytes # (A) 4.6 k/uL (1.0-4.8); Lymphocytes % (A) 30 %; MCH 31.9 pg (25.0-35.0); MCHC 32.2 g/dL (31.0-37.0); MCV 99.2 fL (80.0-100.0); Mean Platelet Volume 7.9; Monocytes # (A) 0.9 k/uL (0-1.0); Monocytes % (A) 6 %; Neutrophils # (A) 9.5 k/uL (1.3-7.7); Neutrophils % (A) 62 %; Platelet Count 305 k/uL (150-450); RBC 3.64 m/uL (3.80-5.40); RDW 13.2 % (11.5-15.5); WBC 15.5 k/uL (3.8-10.6)
--- NOTE | 2017-08-04 10:04 | P.PNOBGPC ---
Subjective - Subjective Principal diagnosis: S/P RLTCS with TL POD #1 Interval history: patient seen and examined. She denies nausea, vomiting, chest pain, shortness of breath or calf pain. Patient reports: Reports appetite normal, Reports voiding normally, Reports pain well controlled, Reports ambulating normally : doing well Objective - Vital Signs Latest vital signs: Vital Signs Temp Pulse Resp BP Pulse Ox 08/04/17 08:00 97.3 F L 79 16 128/59 96 08/04/17 00:00 97.8 F 76 18 124/61 96 08/03/17 20:00 99.0 F 78 16 126/76 97 08/03/17 16:00 98.4 F 72 16 132/86 98 08/03/17 12:00 98.5 F 71 16 124/71 Intake and Output 08/03/17 08/04/17 08/04/17 22:59 06:59 14:59 Intake Total 400 Output Total 950 Balance -950 400 Intake: Oral 400 Output: Urine 950 Other: Voiding Method Toilet # Voids 2 2 - Exam Lungs: bilateral: normal Chest: Normal S1, Normal S2 Extremities: Present: normal Abdomen: Present: normal appearance, soft. Absent: distention, tenderness Incision: Present: normal, dry, intact Uterus: Present: normal, firm - Labs Labs: Abnormal Lab Results - Last 24 Hours (Table) 08/04/17 Range/Units 07:12 WBC 15.5 H (3.8-10.6) k/uL RBC 3.64 L (3.80-5.40) m/uL Neutrophils # 9.5 H (1.3-7.7) k/uL Assessment and Plan (1) Previous section Current Visit: Yes Status: Resolved Code(s): Z98.891 - HISTORY OF UTERINE SCAR FROM PREVIOUS SURGERY SNOMED Code(s): 023326071 (2) Family planning Current Visit: Yes Status: Resolved Code(s): Z30.09 - ENCOUNTER FOR OTH GENERAL CNSL AND ADVICE ON CONTRACEPTION SNOMED Code(s): 744862588 (3) Status post repeat low transverse section Current Visit: Yes Status: Acute Code(s): Z98.891 - HISTORY OF UTERINE SCAR FROM PREVIOUS SURGERY SNOMED Code(s): 300499797 (4) Status post tubal ligation at time of delivery, current hosp Current Visit: Yes Status: Acute Code(s): O80 - ENCOUNTER FOR FULL-TERM UNCOMPLICATED DELIVERY; Z30.2 - ENCOUNTER FOR STERILIZATION SNOMED Code(s): 708944147 Plan: 1. Increase ambulation 2. Continue pain control 3. Anticipate discharge tomorrow
--- NOTE | 2017-08-04 16:26 | P.PN ---
Progress Note - Text Progress Note Date: 08/04/17 Postoperative day 1 status post section under spinal anesthesia, and intrathecal morphine given for postoperative analgesia, patient doing well, there is no anesthesia related complications, Patient had no headache, vital signs stable , Assessment and plan= postop day 1 status post , doing well there is no paresthesia radiated complication
[2017-08-04] MEDS: SENNOSIDES-DOCUSATE SODIUM 1 EACH TAB PO SCH ×2 (18:41→19:54)
[2017-08-05] MEDS: IBUPROFEN 600 MG TAB PO PRN ×2 (01:42→10:24)
--- NOTE | 2017-08-05 08:04 | P.DS ---
Providers Date of admission: 08/03/17 00:50 Expected date of discharge: 08/05/17 Attending physician: Sharif Santiago Primary care physician: Stated None Hospital Course: Marylou is doing very well postop day 2. She is ambulating, voiding and she is tolerating her diet. She voices no complaints. Vital signs stable afebrile. Heart regular, lungs clear, extremities are without pain. Her abdomen is soft she has bowel sounds and her incision is clean dry and intact. We'll plan to remove anthony today prior to discharge. Prescription for Tylenol 3 and Motrin has been provided. She is aware to have no heavy lifting limited stairs and driving as well as pelvic rest. Discharge instructions were thoroughly reviewed all questions are answered and she is stable for discharge at this time. Patient Condition at Discharge: Good Plan - Discharge Summary New Discharge Prescriptions: New Acetaminophen-Codeine 300-30mg [Tylenol #3] 1 tab PO Q4H PRN #30 tablet PRN Reason: Pain Ibuprofen [Motrin] 600 mg PO Q6HR PRN #30 tab PRN Reason: Pain No Action Pedi Multivit No.25/Folic Acid [Flintstones Multivit Chew Tab] 2 tab PO DAILY Discharge Medication List Pedi Multivit No.25/Folic Acid [Flintstones Multivit Chew Tab] 2 tab PO DAILY [History] Acetaminophen-Codeine 300-30mg [Tylenol #3] 1 tab PO Q4H PRN #30 tablet [Rx] Ibuprofen [Motrin] 600 mg PO Q6HR PRN #30 tab 08/05/17 [Rx] Follow up Appointment(s)/Referral(s): Sharif Santiago DO [Doctor of Osteopathic Medicine] - 1 Week Activity/Diet/Wound Care/Special Instructions: No heavy lifting, limit stairs and driving, and pelvic rest. If any high temperatures, heavy bleeding, or severe pain call my office Discharge Disposition: HOME SELF-CARE
[2017-08-05 09:54] VITALS: BP 130/74; PULSE 84; TEMP 98.9
[2017-08-05] MEDS: SENNOSIDES-DOCUSATE SODIUM 1 EACH TAB PO SCH (09:57)
[2017-08-05] MEDS: MULTIVITAMINS, PEDIATRIC 1 EACH CHEWABLE PO SCH (09:57)
[2017-08-05] MEDS: HYDROcodone/APAP 5-325MG 1 EACH TAB PO PRN (13:16)
== END 2017-08-05 14:11 | disposition home or self-care (01) | DRG 766 ==
LOC: FBPOP 00:19 → 4FBP 00:50
PROVIDERS: ADMIT Obstetrics & Gynecology; ATTEND Obstetrics & Gynecology
PROC: 0UB70ZZ Excision of Bilateral Fallopian Tubes, Open Approach (ICD-10-PCS; principal; 2017-08-03 01:52)
PROC: 10D00Z1 Extraction of Products of Conception, Low, Open Approach (ICD-10-PCS; principal; 2017-08-03 01:52)
DX: O42.92 Full-term premature rupture of membranes, unspecified as to length of time between rupture and onset of labor (principal); F17.200 Nicotine dependence, unspecified, uncomplicated; O34.211 Maternal care for low transverse scar from previous cesarean delivery; Z37.0 Single live birth; O99.334 Smoking (tobacco) complicating childbirth; Z3A.38 38 weeks gestation of pregnancy; Z88.7 Allergy status to serum and vaccine; Z88.1 Allergy status to other antibiotic agents; Z88.0 Allergy status to penicillin; Z91.013 Allergy to seafood; Z30.2 Encounter for sterilization
CPT/HCPCS: 59025; 84112; 85025; 86850; 86900; 86901; 88302; 88307; 99213

== ENCOUNTER → 2017-08-06 | Outpatient (CLI) | payer OTHER ==
--- NOTE | 2017-08-06 14:17 | US ---
EXAMINATION TYPE: US venous doppler duplex LE RT DATE OF EXAM: 08/06/2017 2:02 PM COMPARISON: Right lower extremity venous ultrasound August 30, 2013 CLINICAL HISTORY: R22.41 Swelling. Edema right leg. 08/03/17 SIDE PERFORMED: Right TECHNIQUE: The lower extremity deep venous system is examined utilizing real time linear array sonog lia with graded compression, doppler sonography and color-flow sonography. VESSELS IMAGED: External Iliac Vein (EIV) Common Femoral Vein Deep Femoral Vein Greater Saphenous Vein * Femoral Vein Popliteal Vein Small Saphenous Vein * Proximal Calf Veins (* superficial vessels) Right Leg: No evidence of DVT Grayscale, color doppler, spectral doppler imaging performed of the deep veins of the right lower ext remity. There is normal flow, compressibility, vascular waveforms. IMPRESSION: No ultrasound evidence for acute DVT in the right lower extremity.
== END | disposition home or self-care (01) ==
LOC: RADUSWWP 13:34
PROVIDERS: ATTEND Obstetrics & Gynecology
DX: M79.89 Other specified soft tissue disorders (principal)

== ENCOUNTER → 2017-09-09 | Outpatient (CLI) | payer OTHER ==
--- NOTE | 2017-09-09 10:39 | CT ---
EXAMINATION TYPE: CT abdomen pelvis w con DATE OF EXAM: 09/09/2017 COMPARISON: Prior CT abdomen pelvis 05/21/2015 HISTORY: Patient complains of periumbilical pain post . CT DLP: 1020 mGycm Automated exposure control for dose reduction was used. TECHNIQUE: Helical acquisition of images from the lung bases through the pelvis have been completed. CONTRAST: Performed with Oral Contrast and with IV Contrast, patient injected with 100 mL of Omnipaque 300. FINDINGS: Small umbilical hernia contains fat. Increased attenuation along anterior abdominal wall li antonio is related to patient's prior surgery, scar, difficult to exclude inflammatory change LUNG BASES: No significant abnormality is appreciated. AORTA: No significant abnormality is appreciated. LIVER/GB: No significant abnormality is appreciated. PANCREAS: No significant abnormality is seen. SPLEEN: No significant abnormality is seen. ADRENALS: No significant abnormality is seen. KIDNEYS: No significant abnormality is seen. REPRODUCTIVE ORGANS: Peripherally enhancing adnexal focus on the left measures 2 cm and shows central low-attenuation likely ovarian cyst BOWEL: There are areas of colonic wall thickening which are indeterminate and difficult to exclude a mucosal lesion. FREE AIR: No Free Air visible. ASCITES: None visible. PELVIC ADENOPATHY: None visualized. RETROPERITONEAL ADENOPATHY: No Retroperitoneal Adenopathy visible. URINARY BLADDER: No significant abnormality is seen. OSSEOUS STRUCTURES: No significant abnormality is seen. IMPRESSION: POSTOP CHANGES. ADDITIONAL FINDINGS ABOVE.
== END | disposition home or self-care (01) ==
LOC: RADCTMAIN 07:58
PROVIDERS: ATTEND Surgery Plastic and Reconstructive Surgery
DX: K42.9 Umbilical hernia without obstruction or gangrene (principal); Z98.890 Other specified postprocedural states
CPT/HCPCS: 74177; Q9967

== ENCOUNTER → 2017-09-26 | Outpatient (CLI) | payer OTHER | END | disposition home or self-care (01) | LOC: LABPAT 12:10 | PROVIDERS: ATTEND Surgery Plastic and Reconstructive Surgery | DX: Z01.818 Encounter for other preprocedural examination (principal) ==

== ENCOUNTER 2017-09-27 06:24 | Day surgery (SDC) | payer OTHER ==
[2017-09-25 14:43] VITALS: BMI 31.9
[~2017-09-27 06:24] MED LIST: DEXAMETHASONE SOD PHOSPHATE 10 MG/ML 1 ML VIAL IV ONE; HEPARIN SODIUM,PORCINE 5,000 UNIT/ML 1 ML VIAL SQ ONE; HYDROmorphone 0.5 MG/0.5 ML SYRINGE IVP PRN; LACTATED RINGERS 1,000 ML IV SCH; LIDOCAINE 1% 20 ML VIAL (10MG/ML) FOR IV START INTRADERMA PRN; MIDAZOLAM 2 MG/2 ML VIAL IV PRN; MORPHINE SULFATE 2 MG/ML SYRINGE IV PRN; SCOPOLAMINE 1.5MG/72HR PATCH TRANSDERM ONE; ceFAZolin IN SWFI 2 GM/20 ML SYRINGE IVP ONE
[2017-09-27 07:07] VITALS: TEMP 97.6
[2017-09-27] MEDS: ONDANSETRON 4 MG/2 ML VIAL IVP ONE ×2 (07:14→09:44)
--- NOTE | 2017-09-27 07:36 | P.GSHP ---
History of Present Illness H&P Date: 09/27/17 CHIEF COMPLAINT: Incisional hernia. HISTORY OF PRESENT ILLNESS: The patient is a 27-year-old female who presents with a history of swelling along the epigastrium. Findings were consistent with possible incisional hernia. Now she presents for further evaluation and management. PAST MEDICAL HISTORY: Please see list. PAST SURGICAL HISTORY: Please see list. MEDICATIONS: Please see list. ALLERGIES: Please see list. SOCIAL HISTORY: No illicit drug use FAMILY HISTORY: No reports of Crohn disease or ulcerative colitis. REVIEW OF ORGAN SYSTEMS: CONSTITUTIONAL: No reports of fevers or chills. GI: Denies any blood in stools or constipation. PHYSICAL EXAM: VITAL SIGNS: Stable GENERAL: Well-developed pleasant female in no acute distress. HEENT: No scleral icterus. Extraocular movements grossly intact. Moist buccal mucosa. NECK: Supple without lymphadenopathy. CHEST: Unlabored respirations. Equal bilateral excursions. CARDIOVASCULAR: Regular rate and rhythm. Distal 2+ pulses. ABDOMEN: Soft, nondistended. Tender along epigastrium. Protuberant. MUSCULOSKELETAL: No clubbing, cyanosis, or edema. ASSESSMENT: 1. Incisional ventral hernia. PLAN: 1. Recommend proceeding with robotic ventral hernia repair with mesh. 2. Benefits and risks of surgical intervention was discussed including possibility of open technique. 3. DVT prophylaxis. 4. Antibiotic prophylaxis. Past Medical History Past Medical History: Musculoskeletal Disorder Additional Past Medical History / Comment(s): buldging discs, left breast lump; hernia History of Any Multi-Drug Resistant Organisms: None Reported Past Surgical History: Adenoidectomy, Section, Tonsillectomy Additional Past Surgical History / Comment(s): bilateral foot/ankle/leg surgery Past Anesthesia/Blood Transfusion Reactions: No Reported Reaction Smoking Status: Current every day smoker - Past Family History Mother Family Medical History: Cancer, Hypertension, Myocardial Infarction ([place]) Additional Family Medical History / Comment(s): stroke, lupus, lymes disease Medications and Allergies Home Medications Medication Instructions Recorded Confirmed Type Ibuprofen [Motrin] 600 mg PO Q6HR PRN #30 tab 08/05/17 09/27/17 Rx Allergies Allergy/AdvReac Type Severity Reaction Status Date / Time cinnamon Allergy Anaphylaxis Verified 09/27/17 06:43 ciprofloxacin [From Cipro] Allergy Rash/Hives Verified 09/27/17 06:43 ciprofloxacin HCl Allergy Rash/Hives Verified 09/27/17 06:43 [From Cipro] Fish Containing Products Allergy Anaphylaxis Verified 09/27/17 06:43 [Fish] Penicillins Allergy Unknown Verified 09/27/17 06:43 Childhood shellfish derived [Shellfish] Allergy Anaphylaxis Verified 09/27/17 06:43 Tetanus Vaccines and Toxoid Allergy Unknown Verified 09/27/17 06:43 [Tetanus Vaccines & Toxoid] Childhood Surgical - Exam Vital Signs Temp Pulse Resp BP Pulse Ox 97.6 F 95 16 135/87 98 09/27/17 06:50 09/27/17 06:50 09/27/17 06:50 09/27/17 06:50 09/27/17 06:50
[2017-09-27] MEDS ORDERED: ESMOLOL 100 MG/10 ML VIAL ONE (07:40)
[2017-09-27] MEDS ORDERED: LIDOCAINE 1% INJ 10MG/ML (20 ML MDV) ONE (07:40)
[2017-09-27] MEDS ORDERED: SUCCINYLCHOLINE CHLORIDE 100 MG/5 ML SYR IV ONE (07:40)
[2017-09-27] MEDS ORDERED: MIDAZOLAM 2 MG/2 ML VIAL ONE (07:40)
[2017-09-27] MEDS ORDERED: NEOSTIGMINE 1 MG/ML 10 ML VIAL ONE (07:40)
[2017-09-27] MEDS ORDERED: ROCURONIUM BROMIDE 10 MG/ML 10 ML VIAL IV ONE (07:40)
[2017-09-27] MEDS ORDERED: fentaNYL (PF) 50 MCG/ML 2 ML AMP ONE (07:40)
[2017-09-27] MEDS ORDERED: LIDOCAINE 2%-EPI 1:100,000 20 ML VIAL ONE (07:40)
[2017-09-27] MEDS ORDERED: PROPOFOL 10 MG/ML 20 ML VIAL IV ONE (07:40)
[2017-09-27] MEDS ORDERED: GLYCOPYRROLATE 0.2 MG/ML 2 ML VIAL ONE (07:40)
[2017-09-27] MEDS ORDERED: KETOROLAC 30 MG/ML 1 ML VIAL ONE (07:40)
[2017-09-27] MEDS ORDERED: ROPIVACAINE 5 MG/ML 30 ML VIAL ONE (07:40)
[2017-09-27] MEDS ORDERED: MORPHINE SULFATE 10 MG/ML SYRINGE ONE (07:40)
[2017-09-27] MEDS ORDERED: BUPIVACAINE (PF) 0.25% 30 ML VIAL SQ ONE (08:23)
[2017-09-27] MEDS ORDERED: LACTATED RINGERS 1,000 ML IV ONE (09:14)
--- NOTE | 2017-09-27 09:26 | P.OP ---
Date of Procedure: 09/27/17 Description of Procedure: SURGEON: GUNNAR EBTHEA MD MOLDED GRID AND PARTS INSPECTOR: 1. CARINE CARORLL PREOPERATIVE DIAGNOSES: 1. Initial epigastric ventral hernia 2. Obesity, BMI 31.9 3. Degenerative vertebral disc disease, lower back 4. , 2 months POSTOPERATIVE DIAGNOSES: 1. Initial epigastric ventral hernia, incarcerated, 8 cm x 6 cm 2. Obesity, BMI 31.9 3. Degenerative vertebral disc disease, lower back 4. , 2 months OPERATION: 1. Robotic-assisted da Jeovany Xi laparoscopic repair of 8 cm x 6 cm initial incarcerated ventral hernia mesh, ventralight ST mesh 11.4 cm ANESTHESIA: General with local ESTIMATED BLOOD LOSS: 5 mL. SPECIMENS: Incarcerated ventral hernia sac COMPLICATIONS: None. INDICATIONS: The patient is a 27-year-old female who presents with pain along the epigastrium including periumbilical pain. Surgical intervention with laparoscopic versus robotic and open techniques were reviewed. Placement of mesh was also reviewed. Benefits and risks were thoroughly described. Informed consent was obtained. DESCRIPTION OF PROCEDURE: The patient was brought into the operating room and laid in supine position. After general induction, the abdomen had been prepped and draped in standard sterile fashion. Ioban draping was also placed. Prior to incision, a timeout protocol was confirmed with surgical team regarding the patient's name including procedures to be performed. The robot was primed prior to the procedure. A field block using local anesthetis was placed along hernia site including the proposed port sites. Initial incision was made with an #11 blade along the left upper quadrant. A 0 degree 5 mm laparoscopic trocar entry was performed. Diagnostic laparoscopy demonstrated moderate peritoneal adhesions involving the right upper quadrant consistent with her area of pain. Separately an incarcerated ventral hernia of the epigatrium was identified. A 12 mm trocar was placed along the left lateral abdominal wall approximately 12 cm lateral to the lower midline. An 8 mm port was placed along the left lower quadrant under direct localization. The 5-mm port was exchanged for an 8 mm robotic port. Placements of the ports were 15 cm from the target anatomy and approximately 10 cm apart. The [id number][email or web address] Xi robot was previously primed, prepped and draped then docked along the left side of the patient. I then sat at the robot [employer] Xi console where working arms of the robot including Bovie cautery connected to robotic scissors, needle milk pickup truck driver, and graspers placed by the administrative support assistant. Fascial defect of 8 x 6 cm of the epigastrium was identified after cleaning the peritoneal fat of the abdominal wall. The incarcerated contents was reduced as the peritoneal fat was cleaned from the abdominal wall. Next, hemostasis was checked with cautery. The hernia defect was oversewn using #1 Stratafix with imbrication 3. Next, ventralight ST mesh 11.4 cm was placed with the rough side towards the abdominal wall. 2-0 VLOC 9 inch sutures were used to fixate the mesh. A final endoscopic imaging was obtained. All instruments and pneumoperitoneum were evacuated from the abdominal cavity. The da Jeovany Xi robot was undocked from the patient. I re-scrubbed into the case for closure of incisions. The fascia of the 12-mm port was probed and less than 8-mm in size. The incisions were reapproximated using 4-0 Monocryl in an interrupted subcuticular fashion. Liquid glue was applied to the skin after cleansing the skin with normal saline and dilute hydrogen peroxide. A dressing was placed at the umbilicus ith three(3) 4 x 4 gauze followed by Tegaderm. An abdominal binder was placed. At the end of the procedure, needle, sponge, and instrument count had been verified correct by diesel technician mechanic. The patient was taken to the postanesthesia care unit in stable condition. FINDINGS: 1. Ventral incarcerated hernia of the epigastrium, 8 x 6 cm Plan - Discharge Summary Discharge Rx Participant: No New Discharge Prescriptions: No Action Ibuprofen [Motrin] 600 mg PO Q6HR PRN #30 tab PRN Reason: Pain Discharge Medication List Ibuprofen [Motrin] 600 mg PO Q6HR PRN #30 tab 08/05/17 [Rx]
[2017-09-27] MEDS: fentaNYL (PF) 50 MCG/ML 2 ML AMP IV ONE ×2 (09:36→09:44)
[2017-09-27] MEDS ORDERED: MIDAZOLAM 2 MG/2 ML VIAL IVP ONE (10:14)
[2017-09-27] MEDS ORDERED: HYDROcodone/APAP 5-325MG 1 EACH TAB PO ONE ×2 (11:36→11:39)
[2017-09-27 12:27] VITALS: BP 138/77; PULSE 66; RESP 18
--- NOTE | 2017-09-28 11:36 | P.ONQ ---
Anesthesiology Proc Note - PNB - Peripheral Nerve Block Performed Transversus Abdominis Single Time Out Performed: Yes Indication: Acute Post-Operative Pain, Requested by physician Sedation Type: Sedate with meaningful contact maintained Preparation: Sterile Prep Needle Gauge: 21 Technique: Ultrasound Injectate: 0.5% Ropivacaine (see comment for volume) (ropi .5% 15cc each side) Blood Aspirated: No Pain Paresthesia on Injection Noted: No Resistance on Injection: Normal Events: Uneventful and Well Tolerated
== END 2017-09-27 12:37 | disposition home or self-care (01) ==
LOC: OR 06:24
PROVIDERS: ATTEND Surgery Plastic and Reconstructive Surgery
DX: K43.0 Incisional hernia with obstruction, without gangrene (principal); K66.0 Peritoneal adhesions (postprocedural) (postinfection); E66.9 Obesity, unspecified; Z68.31 Body mass index [BMI] 31.0-31.9, adult; M51.36 Other intervertebral disc degeneration, lumbar region; Z88.1 Allergy status to other antibiotic agents; Z88.0 Allergy status to penicillin; Z88.7 Allergy status to serum and vaccine; Z91.013 Allergy to seafood; Z91.018 Allergy to other foods; Z88.5 Allergy status to narcotic agent; F17.210 Nicotine dependence, cigarettes, uncomplicated
CPT/HCPCS: 81025; 86900; 86901; 86850; 88302; 36415; 49655; C1781; J2250; J1644; J1100; J2710; J2270 ×2; J2405; J2001; J3010; J1885; J2795; J0330; J2704; J0690

== ENCOUNTER 2018-03-17 20:41 | Emergency (ER) | payer OTHER ==
--- NOTE | 2018-03-17 21:47 | ED ---
General Adult HPI - General Chief complaint: Back Pain/Injury Stated complaint: back pain Time Seen by Provider: 03/17/18 21:40 Source: patient Mode of arrival: ambulatory Limitations: no limitations - History of Present Illness Initial comments: Was is a 27-year-old female who presents the emergency department for evaluation of right-sided back pain as well as URI-like symptoms for 1 week duration. Reports that she was not experiencing any back pain until this afternoon, she was carrying her 7-month-old baby in his car seat, she placed him in the car and then she sat down in the vehicle. She reports that after the drive she had severe pain in her right back. The pain is spasm-like radiating down all the muscles of the right side of her back. Worse with any movement or palpation. Pain is not associated with any fevers chills weakness gait abnormalities numbness or tingling in the legs. She's not had any bowel or bladder incontinence or retention. She is not experiencing any saddle anesthesia. She has not taken anything for the pain. She reports that she's tried resting in the pain persists. She discussed her symptoms with her family members and her mother was concerned she may have a kidney infection and advised her to come to the ER for evaluation. Patient has not experienced any lower urinary tract symptoms or any symptoms of a urinary tract infection. Patient also states that she's been experiencing a cough for approximately one week. She reports that last Saturday she developed runny nose, nasal congestion and a nonproductive cough. She reports that she has a history of severe ALLERGIES as well as asthma, she is currently out of her inhaler. She reports that the symptoms have persisted all week without improvement. She is not taking any [id number] medications and she has not used her inhaler because she cannot find it. Denies any chest pain, palpitations or shortness of breath. - Related Data Home Medications Medication Instructions Recorded Confirmed Acetaminophen Tab [Tylenol Tab] 650 mg PO Q6H PRN 03/17/18 03/17/18 Previous Rx's Medication Instructions Recorded Albuterol Inhaler [Ventolin Hfa 1 - 2 puff INHALATION RT-Q6H PRN 03/17/18 Inhaler] #1 inhaler Lidocaine 5% Patch [Lidoderm] 1 patch TOPICAL DAILY #30 patch 03/17/18 predniSONE 40 mg PO DAILY 5 Days #10 tab 03/17/18 Allergies Allergy/AdvReac Type Severity Reaction Status Date / Time cinnamon Allergy Anaphylaxis Verified 03/17/18 21:17 ciprofloxacin [From Cipro] Allergy Rash/Hives Verified 03/17/18 21:17 ciprofloxacin HCl Allergy Rash/Hives Verified 03/17/18 21:17 [From Cipro] Fish Containing Products Allergy Anaphylaxis Verified 03/17/18 21:17 [Fish] Penicillins Allergy Unknown Verified 03/17/18 21:17 Childhood shellfish derived [Shellfish] Allergy Anaphylaxis Verified 03/17/18 21:17 Tetanus Vaccines and Toxoid Allergy Unknown Verified 03/17/18 21:17 [Tetanus Vaccines & Toxoid] Childhood Review of Systems ROS Statement: Those systems with pertinent positive or pertinent negative responses have been documented in the HPI. ROS Other: All systems not noted in ROS Statement are negative. Past Medical History Past Medical History: Musculoskeletal Disorder Additional Past Medical History / Comment(s): buldging discs, left breast lump; hernia History of Any Multi-Drug Resistant Organisms: None Reported Past Surgical History: Adenoidectomy, Section, Tonsillectomy Additional Past Surgical History / Comment(s): bilateral foot/ankle/leg surgery Past Anesthesia/Blood Transfusion Reactions: No Reported Reaction Past Psychological History: No Psychological Hx Reported Smoking Status: Current every day smoker Past Alcohol Use History: None Reported Past Drug Use History: None Reported - Past Family History Mother Family Medical History: Cancer, Hypertension, Myocardial Infarction ([place]) Additional Family Medical History / Comment(s): stroke, lupus, lymes disease General Exam - General Exam Comments Initial Comments: GENERAL: Patient is well-developed and well-nourished. Patient is nontoxic and well- hydrated and is in no distress. HENT: Normocephalic, Atraumatic. Neck is soft and supple. No significant lymphadenopathy is noted. Oropharynx is clear. Moist mucous membranes. Neck has full range of motion without eliciting any pain. EYES: The sclera were anicteric and conjunctiva were pink and moist. Extraocular movements were intact and pupils were equal round and reactive to light. Eyelids were unremarkable. PULMONARY: Coarse breath sounds with mild expiratory wheeze CARDIOVASCULAR: There is a regular rate and rhythm without any murmurs gallops or rubs. ABDOMEN: Soft and nontender with normal bowel sounds. SKIN: Skin is clear with no lesions or rashes and otherwise unremarkable. NEUROLOGIC: Patient is alert and oriented x3. Cranial nerves II through XII are grossly intact. Motor and sensory are also intact. Normal speech, volume and content. Symmetrical smile. MUSCULOSKELETAL: Normal extremities with adequate strength and full range of motion. No lower extremity swelling or edema. No calf tenderness. Paraspinal hypertonicity with tenderness to palpation of the right side, worse in the thoracic region LYMPHATICS: No significant lymphadenopathy is noted PSYCHIATRIC: Normal psychiatric evaluation. Limitations: no limitations Limitations: no limitations Course Vital Signs 03/17/18 03/17/18 03/17/18 20:58 21:12 22:44 Temperature 98.6 F Pulse Rate 111 H 71 Respiratory 24 20 14 Rate Blood Pressure 140/81 O2 Sat by Pulse 99 Oximetry 03/17/18 03/17/18 22:51 23:57 Temperature 97.9 F Pulse Rate 72 77 Respiratory 16 20 Rate Blood Pressure 131/78 O2 Sat by Pulse 100 Oximetry Medical Decision Making - Medical Decision Making Patient was seen and evaluated, history is obtained from the patient Patient with 1 week of URI-like symptoms, seasonal ALLERGIES, not taking any home medications, currently out of her home inhaler Patient with musculoskeletal back pain developed today after carrying her 20 pound and latching him in the back seat of the car. Will treatment skilled skeletal pain with Toradol and Lidoderm Will treat URI with breathing treatment and plan to discharge home with steroids and inhaler She reports feeling better after breathing treatment and Toradol. 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 All questions pertaining to care were answered best of my ability, return parameters were discussed. Patient was agreeable to plan for discharge home with albuterol, steroids and Lidoderm patches for musculoskeletal pain. - Lab Data Lab Results 03/17/18 03/17/18 Range/Units 22:08 22:08 Urine Color Yellow Urine Appearance Clear (Clear) Urine pH 6.0 (5.0-8.0) Ur Specific [place] 1.020 (1.001-1.035) Urine Protein Negative (Negative) Urine Glucose (UA) Negative (Negative) Urine Ketones Negative (Negative) Urine Blood Negative (Negative) Urine Nitrite Negative (Negative) Urine Bilirubin Negative (Negative) Urine Urobilinogen 2.0 (<2.0) mg/dL Ur Leukocyte Esterase Negative (Negative) Urine HCG, Qual Not Detected (Not Detectd) Disposition Clinical Impression: Strain of lumbar region, Mechanical back pain, Asthma Disposition: HOME SELF-CARE Condition: Good Instructions: Chronic Back Pain (ED) Prescriptions: Albuterol Inhaler [Ventolin Hfa Inhaler] 1 - 2 puff INHALATION RT-Q6H PRN #1 inhaler PRN Reason: Wheezing Lidocaine 5% Patch [Lidoderm] 1 patch TOPICAL DAILY #30 patch predniSONE 40 mg PO DAILY 5 Days #10 tab Is patient prescribed a controlled substance at d/c from ED?: No Referrals: Breann Rosenberg MD [Primary Care Provider] - 1-2 days
[2018-03-17] MEDS ORDERED: IPRATROPIUM-ALBUTEROL 3 ML NEB INHALATION STA (22:03)
[2018-03-17] MEDS ORDERED: KETOROLAC 30 MG/ML 1 ML VIAL IM STA (22:03)
[2018-03-17 22:55] LABS: Appearance,Urine Clear (Clear); Bilirubin,Urine Negative (Negative); Blood,Urine Negative (Negative); Color,Urine Yellow; Glucose,Urine (UA) Negative (Negative); Ketones,Urine Negative (Negative); Leukocyte Esterase,Urine Negative (Negative); Nitrite,Urine Negative (Negative); Protein,Urine Negative (Negative)
[2018-03-17] MEDS ORDERED: LIDOCAINE 5% PATCH TOPICAL STA (23:12)
[2018-03-18 00:03] VITALS: BP 131/78; PULSE 77; RESP 20; TEMP 97.9
[2018-03-18] MEDS ORDERED: LIDOCAINE 5% PATCH TOPICAL SCH (09:00)
== END 2018-03-18 00:03 | disposition home or self-care (01) ==
LOC: EC 20:41
DX: S39.012A Strain of muscle, fascia and tendon of lower back, initial encounter (principal); J45.909 Unspecified asthma, uncomplicated; F17.200 Nicotine dependence, unspecified, uncomplicated; Z32.02 Encounter for pregnancy test, result negative; Z88.0 Allergy status to penicillin; Z88.1 Allergy status to other antibiotic agents; Z88.7 Allergy status to serum and vaccine; Z91.013 Allergy to seafood; Z91.018 Allergy to other foods; X58.XXXA Exposure to other specified factors, initial encounter
CPT/HCPCS: 94640; 81003; 81025; 99283; 96372; J1885

== ENCOUNTER → 2018-04-28 | Outpatient (CLI) | payer OTHER ==
--- NOTE | 2018-04-29 09:03 | USB ---
Reason for exam: clinical finding. History: Family history of breast cancer in mother at age 28, breast cancer in paternal grandmother, and breast cancer in maternal aunt. Taking hormonal contraceptives for 1 year. Indicated problem(s): palpable abnormality and lump or thickening in the right breast. Physical Findings: Nurse Summary: 1cm movable nodule in the right breast at 9 o'clock and 7 o'clock (nurse anitha). US Breast RT Right complete breast ultrasound includes all four quadrants, the retroareolar region and axilla. Finding demonstrates no cystic or solid lesion seen. These results were verbally communicated with the patient and result sheet given to the patient on 04/28/18. ASSESSMENT: Negative, BI-RAD 1 RECOMMENDATION: Routine screening mammogram of both breasts at age 40. Manage patient on a clinical basis.
== END | disposition home or self-care (01) ==
LOC: RADUSWWP 13:55
PROVIDERS: ATTEND Internal Medicine
DX: R92.8 Other abnormal and inconclusive findings on diagnostic imaging of breast (principal)

== ENCOUNTER → 2018-04-30 | Outpatient (CLI) | payer OTHER ==
--- NOTE | 2018-04-30 10:18 | US ---
EXAMINATION TYPE: US abdomen complete DATE OF EXAM: 04/30/2018 COMPARISON: CT 2018 CLINICAL HISTORY: R10.11 ABDOMINAL PAIN. Intermittent abdomen pain and N/V/D x couple months, gets wo rse after greasy foods EXAM MEASUREMENTS: Liver Length: 14.1 cm Gallbladder Wall: 0.2 cm CBD: 0.5 cm Spleen: 11.1 cm Right Kidney: 10.8 x 4.7 x 5.8 cm Left Kidney: 10.3 x 5.4 x 5.3 cm Pancreas: obscured by overlying midline bowel gas Liver: mildly heterogeneous Gallbladder: wnl Evidence for sonographic Nicholas's sign: yes CBD: wnl Spleen: wnl Right Kidney: wnl Left Kidney: wnl Upper IVC: wnl Abd Aorta: wnl The intrahepatic portion of the IVC and proximal abdominal aorta are within normal limits. There is no evidence of cholelithiasis. Common bile duct is unremarkable. The visualized portions of the pa ncreas are homogenous. The spleen is unremarkable. Kidneys are symmetric and free of hydronephrosis . No renal lesions are seen. IMPRESSION: No significant abnormality appreciated at this time.
== END | disposition home or self-care (01) ==
LOC: RADUSWWP 08:56
PROVIDERS: ATTEND Internal Medicine
DX: R10.11 Right upper quadrant pain (principal)
CPT/HCPCS: 76700

== ENCOUNTER → 2018-05-09 | Outpatient (CLI) | payer OTHER ==
--- NOTE | 2018-05-09 17:21 | NM ---
EXAMINATION TYPE: NM hepatobiliary w EF DATE OF EXAM: 05/09/2018 COMPARISON: NONE HISTORY: Right upper quadrant pain TECHNIQUE: After the intravenous administration of 4.8 mCi Tc 99m Mebrofenin hepatobiliary scintigrap hy is performed. Immediate images post injection. FINDINGS: There is satisfactory initial accumulation of tracer by the liver. The gallbladder is visualized wit hin 8 minutes. The small bowel activity is noted within 24 minutes. At one hour 8 ounces of oral en sure plus is given to mimic CCK and gallbladder ejection fraction is calculated at 41 %, in the deloris l range. Therefore there is no scintigraphic evidence of cystic or common bile duct obstruction to s uggest acute cholecystitis or gallbladder dyskinesia. IMPRESSION: No focal liver defect. Gallbladder ejection fraction is at the lower limit of normal. No evidence of biliary obstruction.
== END ==
LOC: RADNMMAIN 14:58
PROVIDERS: ATTEND Internal Medicine
DX: R10.11 Right upper quadrant pain (principal)
CPT/HCPCS: 78226; A9537

== ENCOUNTER → 2018-05-29 | Outpatient (CLI) | payer OTHER ==
--- NOTE | 2018-05-29 18:42 | US ---
EXAMINATION TYPE: US transvaginal DATE OF EXAM: 05/29/2018 COMPARISON: NONE CLINICAL HISTORY: 28-year-old female N92.1 Excessive and frequent menstruation with heavy, long cycle s. TECHNIQUE: Transvaginal (TV). FINDINGS: EXAM MEASUREMENTS: Uterus: 8.2 x 3.6 x 4.3 cm Endometrial Stripe: 0.9 cm Right Ovary: Obscured by overlying bowel gas Left Ovary: Obscured by overlying bowel gas 1. Uterus: Anteverted, wnl 2. Endometrium: Mild fluid along the endocervical canal 3. Right Ovary: Obscured by overlying bowel gas 4. Left Ovary: Obscured by overlying bowel gas 5. Bilateral Adnexa: peristalsing bowel obscuring ovaries. 6. Posterior cul-de-sac: wnl IMPRESSION: The endometrial stripe measures 9 mm. There is some fluid seen along the endocervical canal that coul d relate to menstruation. Neither ovary could be visualized. No pelvic free fluid.
== END | disposition home or self-care (01) ==
LOC: RADUSWWP 12:44
PROVIDERS: ATTEND Internal Medicine
DX: N92.1 Excessive and frequent menstruation with irregular cycle (principal)
CPT/HCPCS: 76830

== ENCOUNTER 2018-07-28 09:33 | Day surgery (SDC) | payer OTHER ==
[2018-07-24 13:30] VITALS: BMI 34.4
[~2018-07-28 09:33] MED LIST changes: -DEXAMETHASONE SOD PHOSPHATE 10 MG/ML 1 ML VIAL IV ONE; -HEPARIN SODIUM,PORCINE 5,000 UNIT/ML 1 ML VIAL SQ ONE; -HYDROmorphone 0.5 MG/0.5 ML SYRINGE IVP PRN; -LIDOCAINE 1% 20 ML VIAL (10MG/ML) FOR IV START INTRADERMA PRN; -MIDAZOLAM 2 MG/2 ML VIAL IV PRN; -MORPHINE SULFATE 2 MG/ML SYRINGE IV PRN; -SCOPOLAMINE 1.5MG/72HR PATCH TRANSDERM ONE; -ceFAZolin IN SWFI 2 GM/20 ML SYRINGE IVP ONE
[2018-07-28 10:12] VITALS: TEMP 97.5
[2018-07-28] MEDS ORDERED: LACTATED RINGERS 1,000 ML IV ONE (10:12)
[2018-07-28] MEDS ORDERED: LIDOCAINE 1% 20 ML VIAL (10MG/ML) FOR IV START INTRADERMA ONE (10:13)
[2018-07-28] MEDS ORDERED: PROPOFOL 10 MG/ML 20 ML VIAL IV ONE (11:44)
--- NOTE | 2018-07-28 12:20 | P.PCN ---
Date of Procedure: 07/28/18 Procedure(s) Performed: Procedures: 1. Esophagogastroduodenoscopy and biopsy. 2. Colonoscopy and biopsy. Preoperative diagnosis: Epigastric pain and change in bowel habits. Postoperative diagnosis: 1. Small sliding hiatal hernia with no definite esophagitis or complicated reflux disease. 2. Mild gastritis and duodenitis. 3. Multiple biopsies obtained from the duodenum, antrum and esophagus. 4. Normal colon and terminal ileum. 5. Biopsies obtained from the terminal ileum and right colon. Preparation: HalfLytely prep. Sedation: Was provided by anesthesia. Brief clinical history: The patient is a 28-year-old female who was evaluated in the office last month regarding diarrhea of around 2 months duration and epigastric pain. Her gallbladder evaluation was negative. She was tried on Bentyl with no relief. There is family history of Crohn's disease in her mother. She reported nausea and vomiting and apparently she dropped 30-40 pounds quickly after she had her baby in July. This evaluation is to assess for inflammatory bowel disease, peptic ulcer disease or other pathology. Procedure: With the patient on her left lateral decubitus position and after informed consent and adequate sedation, I passed the Olympus-GIF 1990 video upper endoscope through the cricopharyngeus down the esophagus. GE junction was around 38 cm from the incisors and there was a small sliding hiatal hernia but no obvious esophagitis or complicated reflux disease. The endoscope was then passed into the stomach which was insufflated with air and inspected in detail including the retroflex view in the cardia. There was some mottling and erythema in the antrum but no ulcers or erosions. Pyloric channel did not show any ulcers. Duodenal bulb, post bulbar area and descending duodenum showed some erythema and minimal friability and a rare very small erosion in the duodenal bulb with no ulcers or bleeding. Because of her symptoms, I obtained biopsies from the duodenum, antrum and esophagus then the endoscope was withdrawn and I proceeded with the colonoscopy. Perianal area did not show any fissures or fistulas. There were no masses felt on digital rectal examination. The Olympus CFH 190L video colonoscope was then inserted in the rectum in the usual fashion and advanced to the cecum. I intubated the ileocecal valve and examined the terminal ileum. Terminal ileum and colon appeared healthy with no edema, erythema, friability, ulceration, exudation or spontaneous bleeding. No polyps or tumors were seen or any obvious diverticular disease or other pathology. I retroflexed the endoscope in the rectum before the endoscope was withdrawn and I obtained biopsies from the terminal ileum and right colon. The patient tolerated the procedure well. Plan: The patient was reassured. Will await biopsy results. Further plans will be made based on her course and biopsy results. We will keep you updated on her progress.
[2018-07-28 12:34] VITALS: BP 129/85; PULSE 72; RESP 16
== END 2018-07-28 12:57 | disposition home or self-care (01) ==
LOC: ORWHC2ENDO 09:33
DX: K29.50 Unspecified chronic gastritis without bleeding (principal); K44.9 Diaphragmatic hernia without obstruction or gangrene; K29.80 Duodenitis without bleeding; K21.0 Gastro-esophageal reflux disease with esophagitis; R19.7 Diarrhea, unspecified; F17.210 Nicotine dependence, cigarettes, uncomplicated; G43.909 Migraine, unspecified, not intractable, without status migrainosus; Z88.1 Allergy status to other antibiotic agents; Z88.0 Allergy status to penicillin; Z88.7 Allergy status to serum and vaccine; Z79.891 Long term (current) use of opiate analgesic; Z79.899 Other long term (current) drug therapy; Z83.79 Family history of other diseases of the digestive system
CPT/HCPCS: 81025; 88305; 45380; 43239; J2704

== ENCOUNTER 2018-11-01 21:59 | Emergency (ER) | payer OTHER ==
[2018-11-01 22:37] VITALS: BP 128/84; PULSE 77; RESP 20; TEMP 98.7
[2018-11-02] MEDS ORDERED: AZITHROMYCIN 500 MG TAB PO STA (00:09)
--- NOTE | 2018-11-02 00:59 | ED ---
General Adult HPI - General Source: patient, RN notes reviewed, old records reviewed Mode of arrival: ambulatory Limitations: no limitations <Brown Arango - Last Filed: 11/02/18 00:52> <Cyndie Levine - Last Filed: 11/03/18 06:24> - General Chief complaint: ENT Stated complaint: Hearing issues Time Seen by Provider: 11/01/18 23:34 - History of Present Illness Initial comments: 28-year-old female patient with past medical history of chronic back pain, status post tubal ligation presents to ED for pain in left ear. Patient reports that she woke up early this morning felt a popping sensation and then had pain, drainage, decreased hearing out of her left ear. 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 Patient states that she is not having any pain in her sinus region today. Patient denies any other complaints. Denies any headache, changes in vision chest pain shortness breath abdominal pain. Patient states she is not . Systemic: Pt denies fatigue, myalgia, fever/chills, rash. Pt denies weakness, night sweats, weight loss. Neuro: Pt denies headache, visual disturbances, syncope or pre-syncope. HEENT: Pt denies ocular discharge or irritation, rhinorrhea, pharyngitis or notable lymphadenopathy. Cardiopulmonary: Pt denies chest pain, SOB, heart palpitations, dyspnea on exertion. Abdominal/GI: Pt denies abdominal pain, n/v/d. : Pt denies dysuria, burning w/ urination, frequency/urgency. Denies new onset urinary or bowel incontinence. MSK: Pt denies myalgia, loss of strength or function in extremities. Neuro: Pt denies new onset weakness, paresthesias. (Brown Arango) - Related Data Home Medications Medication Instructions Recorded Confirmed Dicyclomine [Bentyl] 10 mg PO Q6HR PRN 07/24/18 07/24/18 Gabapentin [Neurontin] 300 mg PO TID 07/24/18 07/24/18 HYDROcodone/APAP 7.5-325MG [Anderson 1 tab PO Q4H PRN 07/24/18 07/24/18 7.5-325] Previous Rx's Medication Instructions Recorded Albuterol Inhaler [Ventolin Hfa 1 - 2 puff INHALATION RT-Q6H PRN 03/17/18 Inhaler] #1 inhaler Azithromycin [Zithromax Z-pack] 0 mg PO DIRECTED #6 tab 11/02/18 Allergies Allergy/AdvReac Type Severity Reaction Status Date / Time cinnamon Allergy Anaphylaxis Verified 11/01/18 22:38 ciprofloxacin [From Cipro] Allergy Rash/Hives Verified 11/01/18 22:38 ciprofloxacin HCl Allergy Rash/Hives Verified 11/01/18 22:38 [From Cipro] Fish Containing Products Allergy Anaphylaxis Verified 11/01/18 22:38 [Fish] Penicillins Allergy Unknown Verified 11/01/18 22:38 Childhood shellfish derived [Shellfish] Allergy Anaphylaxis Verified 11/01/18 22:38 Tetanus Vaccines and Toxoid Allergy Unknown Verified 11/01/18 22:38 [Tetanus Vaccines & Toxoid] Childhood Review of Systems ROS Other: All systems not noted in ROS Statement are negative. <Brown Arango - Last Filed: 11/02/18 00:52> ROS Other: All systems not noted in ROS Statement are negative. <Cynide Levine - Last Filed: 11/03/18 06:24> ROS Statement: Those systems with pertinent positive or pertinent negative responses have been documented in the HPI. Past Medical History Past Medical History: Musculoskeletal Disorder Additional Past Medical History / Comment(s): buldging discs, left breast lump; hernia History of Any Multi-Drug Resistant Organisms: None Reported Past Surgical History: Adenoidectomy, Section, Tonsillectomy Additional Past Surgical History / Comment(s): bilateral foot/ankle/leg surgery Past Anesthesia/Blood Transfusion Reactions: No Reported Reaction Past Psychological History: No Psychological Hx Reported Smoking Status: Current every day smoker Past Alcohol Use History: None Reported Past Drug Use History: None Reported - Past Family History Mother Family Medical History: Cancer, Hypertension, Myocardial Infarction ([place]) Additional Family Medical History / Comment(s): stroke, lupus, lymes disease <Brown Arango - Last Filed: 11/02/18 00:52> General Exam Limitations: no limitations <Brown Arango - Last Filed: 11/02/18 00:52> - General Exam Comments Initial Comments: Constitutional: NAD, AOX3, Pt has pleasant affect. HEENT: NC/AT, trachea midline, neck supple, no lymphadenopathy. Posterior pharynx non erythematous, without exudates. External ears appear normal, without discharge. Right TM nonerythematous, pale garcia, no bulging or perforation. Left TM mildly erythematous, no perforation noted, no drainage noted no bulging. Mucous membranes moist. Eyes PERRLA, EOM intact. There is no scleral icterus. No pallor noted. Cardiopulmonary: RRR, no murmurs, rubs or gallops, no JVD noted. Lungs CTAB in anterior and posterior conway. No peripheral edema. Abdominal exam: Abdomen soft and non-distended. Abdomen non-tender to palpation in all 4 quadrants. Bowel sounds active in LLQ. No hepatosplenomegaly. No ecchymosis Neuro: CN II-XII grossly intact. No nuchal rigidity. MSK: No posterior calf tenderness bilaterally, homans sign negative bilaterally. Posterior tibialis and radial pulse +2 bilaterally. Sensation intact in upper and lower extremities. Full active ROM in upper and lower extremities, 5/5 stregnth. (Brown Arango) Course Vital Signs 11/01/18 22:35 Temperature 98.7 F Pulse Rate 77 Respiratory 20 Rate Blood Pressure 128/84 O2 Sat by Pulse 98 Oximetry Medical Decision Making <Brown Arango - Last Filed: 11/02/18 00:52> <Cyndie Levine - Last Filed: 11/03/18 06:24> - Medical Decision Making 28-year-old female patient with past medical history of chronic back pain, status post tubal ligation presents to ED for pain in left ear. Patient reports that she woke up early this morning felt a popping sensation and then had pain, drainage, decreased hearing out of her left ear. 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 Patient states that she is not having any pain in her sinus region today. Patient denies any other complaints. Denies any headache, changes in vision chest pain shortness breath abdominal pain. Patient states she is not . Patient vital signs stable, afebrile. Physical exam displayed: External ears appear normal, without discharge. Right TM nonerythematous, pale garcia, no bulging or perforation. Left TM mildly erythematous, no perforation noted, no drainage noted no bulging. Due to penicillin ALLERGY patient placed on azithromycin. Patient to follow up with ENT tomorrow. Patient will return to ER if condition worsens. Case discussed with Dr. Levine. (Brown Arango) I was available for consultation in the emergency department. The history and physical exam were done by the midlevel provider. I was consulted for this patient's care. I reviewed the case with the midlevel provider and based on their presentation of the patient, I agree with the assessment, medical decision making and plan of care as documented. Chart was dictated using Medigram dictation software. Attempts were made to correct any dictation errors however some typographical errors may persist. (Cyndie Levine) Disposition Is patient prescribed a controlled substance at d/c from ED?: No <Brown Arango - Last Filed: 11/02/18 00:52> <Cyndie Levine - Last Filed: 11/03/18 06:24> Clinical Impression: Otalgia of left ear, Otitis media Disposition: HOME SELF-CARE Condition: Stable Instructions (If sedation given, give patient instructions): Earache (ED) Additional Instructions: Patient to adhere to previously discussed treatment plan and will take medication(s) as directed. Patient to follow up with PCP in 1-2 days. Patient to return to ED if symptoms do not improve. Follow up with personal ENT tomorrow. Additional ENT information provided if unable to f/u with personal ENT. Take medication as prescribed. Return to ER if condition worsens. Prescriptions: Azithromycin [Zithromax Z-pack] 0 mg PO DIRECTED #6 tab Referrals: Deep Abdul MD [Primary Care Provider] - 1-2 days John Segura DO [Doctor of Osteopathic Medicine] - 1-2 days
== END 2018-11-02 01:19 | disposition home or self-care (01) ==
LOC: EC 21:59
DX: H66.92 Otitis media, unspecified, left ear (principal); F17.200 Nicotine dependence, unspecified, uncomplicated; Z79.899 Other long term (current) drug therapy; Z91.018 Allergy to other foods; Z88.1 Allergy status to other antibiotic agents; Z88.0 Allergy status to penicillin; Z91.013 Allergy to seafood; Z88.2 Allergy status to sulfonamides; Z88.7 Allergy status to serum and vaccine
CPT/HCPCS: 87070; 87205; 99283

== ENCOUNTER → 2019-06-09 | Outpatient (CLI) | payer MEDICARE ==
--- NOTE | 2019-06-09 14:10 | XR ---
Right wrist HISTORY: Trauma, pain, cold sensation in fingers, M 25.531 4 views of the right wrist Joint spaces and alignment are maintained. Probable geode present at the distal pole of the scaphoid with lucency and sclerotic rim noted. Some sclerosis present at the distal aspect of the lunate. IMPRESSION: No acute dislocation. Sclerosis at the lunate is indeterminate and could be posttraumatic , bone scan or MRI could be performed for additional evaluation.
== END | disposition home or self-care (01) ==
LOC: RADXRMAIN 12:55
PROVIDERS: ATTEND Nurse Practitioner Adult Health
DX: M25.531 Pain in right wrist (principal)

== ENCOUNTER → 2019-07-23 | Outpatient (CLI) | payer MEDICARE, OTHER ==
--- NOTE | 2019-07-23 15:41 | MR ---
EXAMINATION TYPE: MR ankle LT wo con DATE OF EXAM: 07/23/2019 COMPARISON: None HISTORY: Right ankle traumatic arthropathy, posterior tibial tendinitis, flat foot TECHNIQUE: Multiplanar, multisequence images of the left ankle were acquired of intravenous contrast FINDINGS: There is severe thickening of the tibialis posterior just proximal to the talonavicular joint seconda ry to a short segment split tear measuring 2 cm in length. The flexor digitorum longus and flexor maurilio lucis longus tendons are intact and unremarkable. The peroneus brevis and peroneus is longus are of u nremarkable signal however there is a focal tear of the peroneus brevis just below the ankle joint me asuring length of 7 mm. The extensor tendons are unremarkable. Achilles tendon and plantar fascia are unremarkable. Sinus tarsus is also unremarkable. Bone marrow s ignal is within normal limits. Very small tibiotalar joint effusion is seen. Talar dome is intact and unremarkable. The deltoid ligament and posterior talofibular ligaments are intact. However there is a partial thick ness tear of the anterior talofibular ligament. IMPRESSION: 1. Split tear of the tibialis posterior just proximal to the talonavicular joint measuring 2 cm in le ngth. 2. Moderate grade partial thickness tear of the anterior talofibular ligament. 3. Short segment focal tear of the peroneus brevis just above the ankle joint measuring 7 mm in lengt h. 4. Very small uncomplicated tibiotalar joint effusion.
== END | disposition home or self-care (01) ==
LOC: RADMRIMAIN 12:16
PROVIDERS: ATTEND Nurse Practitioner Adult Health
DX: S93.492A Sprain of other ligament of left ankle, initial encounter (principal)

== ENCOUNTER → 2019-07-24 | Outpatient (CLI) | payer MEDICARE, OTHER ==
--- NOTE | 2019-07-27 01:57 | MR ---
EXAMINATION TYPE: MR tib fib LT wo con DATE OF EXAM: 07/24/2019 COMPARISON: None HISTORY: Traumatic arthropathy left ankle and foot Multiplanar multiecho imaging of the left tibia and fibula was performed without contrast. FINDINGS: The tibia and fibula have fairly normal signal pattern. There is no edema. Joint not included on the exam. The knee joint is intact. There is no evidence of a fracture. There is no evidence of soft tiss ue mass. Ankle joint findings described and ankle MR scan report. There is no evidence of a soft tissue mass. The anterior and posterior cruciate ligaments at the knee appear intact. The medial and lateral menisci of the knee appear grossly intact. There is no evidenc e of knee joint effusion. Impression new graft negative MR scan of the left tibia and fibula. Normal left knee.
== END | disposition home or self-care (01) ==
LOC: RADMRIMAIN 11:10
PROVIDERS: ATTEND Nurse Practitioner Adult Health
DX: M12.572 Traumatic arthropathy, left ankle and foot (principal); M21.42 Flat foot [pes planus] (acquired), left foot; M76.821 Posterior tibial tendinitis, right leg

== ENCOUNTER → 2020-02-10 | Outpatient (CLI) | payer MEDICARE, OTHER ==
--- NOTE | 2020-02-10 11:26 | US ---
EXAMINATION TYPE: US venous doppler duplex LE DATE OF EXAM: 02/10/2020 11:09 AM COMPARISON: NONE CLINICAL HISTORY: M79.662 pain in LT lower limb,R22.42 swelling LT. left lower leg pain and edema. Hoyos rgery left ankle and foot 01/13/20 SIDE PERFORMED: Bilateral TECHNIQUE: The lower extremity deep venous system is examined utilizing real time linear array sonog lia with graded compression, doppler sonography and color-flow sonography. VESSELS IMAGED: External Iliac Vein (EIV) Common Femoral Vein Deep Femoral Vein Greater Saphenous Vein * Femoral Vein Popliteal Vein Small Saphenous Vein * Proximal Calf Veins (* superficial vessels) Right Leg: No evidence of DVT Left Leg: No evidence of DVT IMPRESSION: No evidence for DVT
== END | disposition home or self-care (01) ==
LOC: RADUSWWP 10:43
PROVIDERS: ATTEND Family Medicine
DX: M79.662 Pain in left lower leg (principal); R22.42 Localized swelling, mass and lump, left lower limb
CPT/HCPCS: 93970

== ENCOUNTER → 2020-03-02 | Outpatient (CLI) | payer MEDICARE, OTHER ==
[2020-03-02 15:21] LABS: Basophils # (A) 0.1 k/uL (0-0.2); Basophils % (A) 0 %; Eosinophils # (A) 0.1 k/uL (0-0.7); Eosinophils % (A) 1 %; HCT 47.5 % (34.0-46.0); HGB 15.5 gm/dL (11.4-16.0); Lymphocytes # (A) 3.7 k/uL (1.0-4.8); Lymphocytes % (A) 27 %; MCH 30.3 pg (25.0-35.0); MCHC 32.5 g/dL (31.0-37.0); MCV 93.2 fL (80.0-100.0); Mean Platelet Volume 7.9; Monocytes # (A) 0.6 k/uL (0-1.0); Monocytes % (A) 4 %; Neutrophils # (A) 9.4 k/uL (1.3-7.7); Neutrophils % (A) 67 %; Platelet Count 296 k/uL (150-450); RBC 5.09 m/uL (3.80-5.40); RDW 12.2 % (11.5-15.5); WBC 14.1 k/uL (3.8-10.6)
[2020-03-02 20:08] LABS: Anti-Smith Ab Interp NEGATIVE (NEGATIVE); DNA Double-Stranded NEGATIVE (NEGATIVE)
[2020-03-02 20:32] LABS: ALT 18 U/L (8-44); AST 15 U/L (13-35); African American GFR (CKD) 135.7 (60.0-200.0); Albumin/Globulin Ratio 2.16 (1.60-3.17); Alkaline Phosphatase 73 U/L (41-126); BUN/Creat Ratio 8.57 Ratio (12.00-20.00); C Reactive Protein <0.4 mg/dL (0.0-0.8); Calcium 9.2 mg/dL (8.7-10.3); Carbon Dioxide 22.8 mmol/L (21.6-31.8); Chloride 111 mmol/L (96-109); Globulin 1.9 g/dL (1.6-3.3); Glucose 102 mg/dL (70-110); Non-African American GFR(CKD) 117.1 (60.0-200.0); Potassium 3.8 mmol/L (3.5-5.5); Rheumatoid Factor, Qnt 7 IU/mL (0-15); Sodium 140 mmol/L (135-145); Total Bilirubin 0.4 mg/dL (0.3-1.2)
[2020-03-02 21:17] LABS: INR <0.91 (0.90-1.11); Prothrombin Time <9.9 sec (9.9-11.9)
[2020-03-03 01:29] LABS: Erythrocyte Sedimentation Rate 3 mm/Hr (0-20)
== END | disposition home or self-care (01) ==
LOC: LABWHC1 15:03
PROVIDERS: ATTEND Nurse Practitioner Adult Health
DX: G63 Polyneuropathy in diseases classified elsewhere (principal); M12.572 Traumatic arthropathy, left ankle and foot; J45.20 Mild intermittent asthma, uncomplicated; Z82.69 Family history of other diseases of the musculoskeletal system and connective tissue
CPT/HCPCS: 36415; 80053; 84165; 85025; 85610; 85652; 86038; 86140; 86225; 86235; 86431

== ENCOUNTER → 2020-07-05 | Outpatient (CLI) | payer MEDICARE, OTHER ==
--- NOTE | 2020-07-05 17:13 | MR ---
EXAMINATION TYPE: MR ankle LT wo con DATE OF EXAM: 07/05/2020 COMPARISON: 07/23/2019 HISTORY: 30-year-old female Pain in left foot and ankle, S/P Foot reconstruction TECHNIQUE: Multiplanar, multisequence images of the left were obtained without IV contrast. FINDINGS: There is evidence of an interval posterior calcaneal osteotomy with single screw fixation. Achilles tendon and origin of the plantar fascia are intact. Metal artifact reduction sequences were utilized. Tibiotalar joint is intact without any sizable joint effusion. Subtalar joint is aligned. There appears to be an anchor within the sustentaculum ольга probably near the attachment of the super omedial spring ligament. The deep posterior deltoid ligament fibers appear intact. Extensive heterogeneous signal and thickening at the posterior tibial tendon insertion. There appears to have been repair with anchor in the medial navicular. Suggestion of some residual split tearing o f the inframalleolar posterior tibial tendon measuring roughly 2 cm long, refer to axial T2 images 24 through 26. Some inserting fibers are visualized into the navicular at the site of repair. Possible abnormal thickening and fragmentation of fibers just inferiorly which the line to insert at the base of the medial cuneiform and base of the second metatarsal (refer to coronal PD image 17). Progressive thickening of the supramalleolar segment. ATFL, PTFL, and CFL appear intact. Heterogeneity of both inframalleolar peroneus brevis and longus wi th redemonstrated 7 mm short segment split tear of the peroneus brevis just after the peroneal tuberc le (axial T2 image 16). The syndesmosis and anterior extensor tendons appear intact. IMPRESSION: 1. Interval posterior calcaneal osteotomy with single screw fixation. 2. Surgical anchor at the sustentaculum ольга, query interval repair of the calcaneal insertion of the superomedial spring ligament. 3. Additional anchor at the medial navicular. Some inserting fibers of the posterior tibial tendon ar e visualized here but there appears to be a residual 2 cm long split tear of the distal inframalleola r portion of the tendon. 4. In addition, there is marked thickening and heterogeneity and possible fragmentation just below th e navicular insertion involving PTT fibers which go on to insert at the medial cuneiform and base of the second metatarsal. This extensive heterogeneity may reflect postsurgical change and scarring or e xtensive partial tears. 5. Tiny 7 mm split within the inframalleolar peroneus brevis just after the peroneal tubercle.
== END | disposition home or self-care (01) ==
LOC: RADMRIMAIN 11:41
PROVIDERS: ATTEND Orthopaedic Surgery
DX: S96.812A Strain of other specified muscles and tendons at ankle and foot level, left foot, initial encounter (principal); M67.874 Other specified disorders of tendon, left ankle and foot; Z98.890 Other specified postprocedural states

== ENCOUNTER → 2021-05-25 | Outpatient (CLI) | payer MEDICARE, OTHER ==
--- NOTE | 2021-05-25 11:16 | CT ---
EXAMINATION TYPE: CT abdomen pelvis wo con DATE OF EXAM: 05/25/2021 COMPARISON: 319 HISTORY: Low back pain with hematuria. CT DLP: 1075 mGycm Examination of the solid and hollow viscera is limited given the lack of contrast. FINDINGS: LUNG BASES: No evidence for nodule. No evidence for infiltrate. LIVER/GB: The gallbladder is unremarkable. No space-occupying hepatic lesion. PANCREAS: No pancreatic mass identified. No inflammatory process seen. SPLEEN: No evidence for splenomegaly. No intrasplenic lesions seen. ADRENALS: No adrenal nodules identified. No evidence for thickening. KIDNEYS: No evidence for renal mass. Nonobstructing renal calculus mid pole left kidney measuring 3 m m. There is no evidence for hydronephrosis. BOWEL: Appendix has a normal appearance. No evidence of bowel obstruction. No inflammatory process. Lymph nodes: No evidence for adenopathy greater than 1 cm. Abdominal aorta: Atheromatous changes seen. No evidence for aneurysm. Genital organs: Left ovarian cystic lesion measuring 4 cm. The uterus and right ovary are unremarkabl e. Other: No significant abnormality. IMPRESSION: 1. Nonobstructing calculus left kidney. 2. Left ovarian cystic lesion which can be further evaluated with ultrasound.
== END | disposition home or self-care (01) ==
LOC: RADCTMAIN 10:31
PROVIDERS: ATTEND Internal Medicine
DX: N20.0 Calculus of kidney (principal); N83.202 Unspecified ovarian cyst, left side
CPT/HCPCS: 74176

== ENCOUNTER → 2021-07-04 | Outpatient (CLI) | payer MEDICARE, OTHER ==
[2021-07-04 12:13] LABS: Basophils % (A) 0 %; Eosinophils # (A) 0.1 k/uL (0-0.7); Eosinophils % (A) 1 %; HCT 48.1 % (34.0-46.0); HGB 15.6 gm/dL (11.4-16.0); Lymphocytes # (A) 3.4 k/uL (1.0-4.8); Lymphocytes % (A) 29 %; MCH 31.7 pg (25.0-35.0); MCHC 32.4 g/dL (31.0-37.0); MCV 97.9 fL (80.0-100.0); Mean Platelet Volume 8.1; Monocytes # (A) 0.5 k/uL (0-1.0); Monocytes % (A) 5 %; Neutrophils # (A) 7.5 k/uL (1.3-7.7); Neutrophils % (A) 64 %; Platelet Count 276 k/uL (150-450); RBC 4.92 m/uL (3.80-5.40); RDW 11.8 % (11.5-15.5); WBC 11.7 k/uL (3.8-10.6)
[2021-07-04 12:25] LABS: African American GFR (CKD) >90 (>60 ml/min/1.73 sqM); Anion Gap 5 mmol/L; Blood Urea Nitrogen 6 mg/dL (7-17); Calcium 9.2 mg/dL (8.4-10.2); Carbon Dioxide 27 mmol/L (22-30); Chloride 107 mmol/L (98-107); Glucose 84 mg/dL (74-99); Non-African American GFR(CKD) >90 (>60 ml/min/1.73 sqM); Potassium 4.1 mmol/L (3.5-5.1); Sodium 139 mmol/L (137-145)
[2021-07-04 12:28] LABS: Amorphous Sediment,Urine Rare /hpf; Appearance,Urine Cloudy (Clear); Bacteria,Urine Rare /hpf; Bilirubin,Urine Negative (Negative); Blood,Urine Negative (Negative); Color,Urine Yellow; Glucose,Urine (UA) Negative (Negative); Ketones,Urine Negative (Negative); Leukocyte Esterase,Urine Negative (Negative); Mucus,Urine Occasional /hpf; Nitrite,Urine Negative (Negative); Protein,Urine Negative (Negative); RBC,Urine 1 /hpf (0-5); Specific Gravity,Urine 1.018 (1.001-1.035); Squamous Epithelial Cell,Urine 4 /hpf (0-4); WBC,Urine 1 /hpf (0-5)
== END | disposition home or self-care (01) ==
LOC: LABPAT 11:14
PROVIDERS: ATTEND Urology
DX: Z01.812 Encounter for preprocedural laboratory examination (principal); N20.0 Calculus of kidney; N39.0 Urinary tract infection, site not specified
CPT/HCPCS: 36415; 80048; 81001; 85025; 87086

== ENCOUNTER → 2021-09-18 | Outpatient (CLI) | payer MEDICARE, OTHER ==
--- NOTE | 2021-09-18 19:10 | US ---
EXAMINATION TYPE: US kidneys/renal and bladder DATE OF EXAM: 09/18/2021 COMPARISON: 05/25/21 CT CLINICAL HISTORY: 31-year-old female N20.0 CALCULUS OF LT KIDNEY. History of left renal stone with li thotripsy in 07/2021 TECHNIQUE: Multiple sonographic images of the kidneys and bladder are obtained. FINDINGS: EXAM MEASUREMENTS: Right Kidney: 11.6 x 6.0 x 5.4 cm Left Kidney: 11.2 x 5.6 x 6.0 cm Right Kidney: No hydronephrosis or masses seen Left Kidney: No hydronephrosis or masses seen No shadowing calculus is seen within either kidney. Bladder: No gross abnormality. Bilateral Jets seen: Yes Post Void Residual Volume: 35.14 mL Normal Post Void Residual: Yes IMPRESSION: 1. No hydronephrosis. 2. Increased postvoid bladder volume of 35 mL. While this is elevated, it still falls within the acce ptable range used by this institution (<50 mL). Clinically correlate.
== END | disposition home or self-care (01) ==
LOC: RADUSWWP 14:54
PROVIDERS: ATTEND Urology
DX: N20.0 Calculus of kidney (principal)
CPT/HCPCS: 76770

== ENCOUNTER → 2022-02-28 | Outpatient (CLI) | payer MEDICARE, OTHER ==
--- NOTE | 2022-03-01 23:20 | XR ---
EXAMINATION TYPE: XR hand complete RT, XR finger RT DATE OF EXAM: 02/28/2022 CLINICAL HISTORY: Injury with pain worse in thumb. TECHNIQUE: Frontal, lateral and oblique images of the right thumb and hand are obtained. COMPARISON: None. FINDINGS: There is no acute fracture/dislocation evident in the right hand with particular attention to the right first finger. The joint spaces in the right hand and thumb appear within normal limits. The overlying soft tissue appears unremarkable. IMPRESSION: There is no acute fracture or dislocation in the right thumb or the right hand.
--- NOTE | 2022-03-01 23:23 | XR ---
EXAMINATION TYPE: XR knee 4V RT DATE OF EXAM: 02/28/2022 CLINICAL HISTORY: Pain. TECHNIQUE: 4 views of the right knee are obtained. COMPARISON: None. FINDINGS: There is no acute fracture/dislocation evident in the right knee. Mild narrowing medial ti biofemoral compartment. No significant spurring. Patellar articulation satisfactory on the sunrise vi ew . The overlying soft tissue appears unremarkable. IMPRESSION: As above.
== END | disposition home or self-care (01) ==
LOC: RADXRMAIN 10:09
PROVIDERS: ATTEND Internal Medicine
DX: M25.861 Other specified joint disorders, right knee (principal); M79.644 Pain in right finger(s)

== ENCOUNTER → 2022-03-15 | Outpatient (CLI) | payer MEDICARE, OTHER ==
[2022-03-15 14:25] LABS: Basophils # (A) 0.03 X 10*3/uL (0.00-0.10); Basophils % (A) 0.3 %; Eosinophils # (A) 0.08 X 10*3/uL (0.04-0.35); Eosinophils % (A) 0.8 %; HCT 46.2 % (37.2-46.3); HGB 15.6 g/dL (12.0-15.0); Immature Grans, Automated 0.3 %; Lymphocytes # (A) 2.56 X 10*3/uL (0.90-5.00); Lymphocytes % (A) 27.1 %; MCHC 33.8 g/dL (32.0-37.0); MCV 94.9 fL (80.0-97.0); Monocytes # (A) 0.61 X 10*3/uL (0.20-1.00); Monocytes % (A) 6.5 %; NRBC Per 100 WBC 0 /100 WBCS (0.0-0.0); Neutrophils # (A) 6.14 X 10*3/uL (1.80-7.70); Platelet Count 286 X 10*3/uL (140-440); RBC 4.87 X 10*6/uL (4.10-5.20); WBC 9.45 X 10*3/uL (4.50-10.00)
[2022-03-15 14:51] LABS: ALT 17 U/L (8-44); AST 20 U/L (13-35); Albumin 3.8 g/dL (3.8-4.9); Albumin/Globulin Ratio 1.52 (1.60-3.17); Alkaline Phosphatase 63 U/L (41-126); BUN/Creat Ratio 7.84 Ratio (12.00-20.00); Blood Urea Nitrogen 5.2 mg/dL (9.0-27.0); Calcium 9.1 mg/dL (8.7-10.3); Carbon Dioxide 22.7 mmol/L (20.0-27.5); Chloride 106 mmol/L (96-109); Chol/HDL Ratio 3.78 Ratio; Globulin 2.5 g/dL (1.6-3.3); Glucose 94 mg/dL (70-110); LDL Cholesterol,Calculated 86.1 mg/dL (0.0-131.0); Non-African American GFR(CKD) 117.3 (60.0-200.0); Potassium 4.1 mmol/L (3.5-5.5); Sodium 139 mmol/L (135-145); Total Protein 6.3 g/dL (6.2-8.2); Uric Acid 4.2 mg/dL (2.9-7.7); VLDL Calculation 11.74 mg/dL (5.00-40.00)
== END | disposition home or self-care (01) ==
LOC: LABWHC1 08:49
PROVIDERS: ATTEND Internal Medicine
DX: Z00.00 Encounter for general adult medical examination without abnormal findings (principal); M25.561 Pain in right knee
CPT/HCPCS: 36415; 80053; 80061; 84443; 84550; 85025

== ENCOUNTER → 2022-05-14 | Outpatient (CLI) | payer MEDICARE, OTHER ==
[2022-05-14 15:52] LABS: Rheumatoid Factor, Qnt <10 IU/mL (0-15); Uric Acid 3.8 mg/dL (2.9-7.7)
[2022-05-14 15:53] LABS: C Reactive Protein <0.30 mg/dL (0.00-0.80)
[2022-05-14 16:00] LABS: Basophils # (A) 0.03 X 10*3/uL (0.00-0.10); Basophils % (A) 0.3 %; Eosinophils # (A) 0.08 X 10*3/uL (0.04-0.35); Eosinophils % (A) 0.8 %; HCT 47.9 % (37.2-46.3); HGB 15.8 g/dL (12.0-15.0); Immature Grans, Automated 0.4 %; Lymphocytes # (A) 2.88 X 10*3/uL (0.90-5.00); Lymphocytes % (A) 28.7 %; MCH 30.9 pg (27.0-32.0); MCV 93.6 fL (80.0-97.0); Mean Platelet Volume 10.5 fL (9.5-12.2); Monocytes # (A) 0.68 X 10*3/uL (0.20-1.00); Monocytes % (A) 6.8 %; NRBC Per 100 WBC 0 /100 WBCS (0.0-0.0); Neutrophils # (A) 6.33 X 10*3/uL (1.80-7.70); Platelet Count 316 X 10*3/uL (140-440); RBC 5.12 X 10*6/uL (4.10-5.20); RDW 12.7 % (11.5-14.5); WBC 10.04 X 10*3/uL (4.50-10.00)
[2022-05-14 17:10] LABS: Erythrocyte Sedimentation Rate 6 mm/Hr (0-20)
[2022-05-14 18:08] LABS: Anti-DNA, DS unit <1.0 IU/mL; DNA Double-Stranded NEGATIVE (NEGATIVE)
[2022-05-15 14:11] LABS: HLA B27 NEGATIVE
== END | disposition home or self-care (01) ==
LOC: LABWHC1 09:28
PROVIDERS: ATTEND Orthopaedic Surgery
DX: M25.50 Pain in unspecified joint (principal)
CPT/HCPCS: 36415; 84550; 85025; 85652; 86038; 86140; 86225; 86431; 86812

== ENCOUNTER → 2022-05-31 | Outpatient (CLI) | payer MEDICARE, OTHER ==
--- NOTE | 2022-05-31 14:14 | MR ---
EXAMINATION TYPE: MR knee RT wo con DATE OF EXAM: 05/31/2022 COMPARISON: None HISTORY: Right knee pain for 3 months. TECHNIQUE: Multiplanar, multisequence images of the knee is performed without IV contrast. FINDINGS: MEDIAL MENISCUS: Anterior and posterior horns are intact without tear. LATERAL MENISCUS: Anterior and posterior horns are intact without tear. CRUCIATE LIGAMENTS: Chronic partial tear near the tibial insertion of the ACL. Adjacent ganglion cyst noted with internal septations noted measuring approximately 2.0 x 0.7 cm. No acute ACL tear or rupt ure. PCL is intact. COLLATERAL LIGAMENTS: The medial collateral ligament and lateral collateral ligament complex are inta ct and unremarkable. EXTENSOR MECHANISM: Visualized quadriceps and patellar tendons are intact. EFFUSION: No significant suprapatellar joint effusion. POPLITEAL CYST: No popliteal/elizalde cyst. TRICOMPARTMENT SPACES: Intact CARTILAGE: Intact BONE MARROW SIGNAL: Increased signal involving the patella lower pole may reflect bone marrow edema. Bone marrow is otherwise homogeneous. OTHER: No additional significant abnormality is appreciated. IMPRESSION: 1.Chronic partial tear near the tibial insertion of the ACL. Adjacent ganglion cyst noted with inclusion intern al septations noted measuring approximately 2.0 x 0.7 cm. 2. Bone marrow edema suggested involving the patella.
== END | disposition home or self-care (01) ==
LOC: RADMRIMAIN 12:47
PROVIDERS: ATTEND Orthopaedic Surgery
DX: M23.611 Other spontaneous disruption of anterior cruciate ligament of right knee (principal); M67.461 Ganglion, right knee; R60.0 Localized edema; M25.561 Pain in right knee

== ENCOUNTER → 2022-07-25 | Outpatient (CLI) | payer MEDICARE, OTHER ==
--- NOTE | 2022-07-25 11:33 | XR ---
EXAMINATION TYPE: XR chest 2V DATE OF EXAM: 07/25/2022 10:18 AM COMPARISON: Chest radiographs from 09/19/2016 TECHNIQUE: XR chest 2V Frontal and lateral views of the chest. CLINICAL INDICATION:Female, 32 years old with history of R05.9 Cough; FINDINGS: Lungs/Pleura: There is no evidence of pleural effusion, focal consolidation, or pneumothorax. Pulmonary vascularity: Unremarkable. Heart/mediastinum: Cardiomediastinal silhouette is unremarkable. Musculoskeletal: No acute osseous pathology. IMPRESSION: No acute cardiopulmonary disease/process.
== END | disposition home or self-care (01) ==
LOC: RADXRMAIN 08:46
PROVIDERS: ATTEND Internal Medicine
DX: R05.9 Cough, unspecified (principal)
CPT/HCPCS: 71046

== ENCOUNTER → 2022-09-12 | Outpatient (CLI) | payer MEDICARE, OTHER ==
[2022-09-12 23:05] LABS: HCT 44.4 % (37.2-46.3); HGB 14.6 g/dL (12.0-15.0); MCH 31.3 pg (27.0-32.0); MCHC 32.9 g/dL (32.0-37.0); MCV 95.3 fL (80.0-97.0); Mean Platelet Volume 11.2 fL (9.5-12.2); NRBC Per 100 WBC 0 /100 WBCS (0.0-0.0); Platelet Count 305 X 10*3/uL (140-440); RBC 4.66 X 10*6/uL (4.10-5.20); RDW 12.2 % (11.5-14.5); WBC 11.75 X 10*3/uL (4.50-10.00)
[2022-09-13 01:25] LABS: Basophils # (A) 0.05 X 10*3/uL (0.00-0.10); Basophils % (A) 0.4 %; Eosinophils # (A) 0.08 X 10*3/uL (0.04-0.35); Eosinophils % (A) 0.7 %; Immature Grans, Automated 0.3 %; Lymphocytes # (A) 4.06 X 10*3/uL (0.90-5.00); Lymphocytes % (A) 34.6 %; Monocytes # (A) 0.57 X 10*3/uL (0.20-1.00); Monocytes % (A) 4.9 %; Neutrophils # (A) 6.95 X 10*3/uL (1.80-7.70); Neutrophils % (A) 59.1 %
[2022-09-13 01:26] LABS: RBC Morphology NORMAL
== END | disposition home or self-care (01) ==
LOC: LABWHC1 15:10
PROVIDERS: ATTEND Orthopaedic Surgery
DX: Z01.812 Encounter for preprocedural laboratory examination (principal); D72.829 Elevated white blood cell count, unspecified
CPT/HCPCS: 36415; 85025

== ENCOUNTER 2022-09-14 09:26 | Day surgery (SDC) | payer MEDICARE, OTHER ==
--- NOTE | 2022-09-13 09:35 | P.HPOR ---
History of Present Illness H&P Date: 09/13/22 Chief Complaint: Right knee pain The patient's a 32-year-old female who presents with right knee pain for the past 5 months. She notes diffuse pain with weightbearing activities. She has catching and locking. She's tried bracing, anti-inflammatory medications in addition to an injection without much relief. Review of Systems As per HPI Past Medical History Past Medical History: Asthma, GERD/Reflux, Musculoskeletal Disorder Additional Past Medical History / Comment(s): buldging discs, left breast lump; hernia, KIDNEY STONES History of Any Multi-Drug Resistant Organisms: None Reported Past Surgical History: Adenoidectomy, Section, Hernia Repair, Tonsillectomy, Tubal Ligation Additional Past Surgical History / Comment(s): bilateral foot/ankle/leg surgery abdominal hernia repair Past Anesthesia/Blood Transfusion Reactions: No Reported Reaction Smoking Status: Current every day smoker - Past Family History Mother Family Medical History: Cancer, Hypertension, Myocardial Infarction ([place]) Additional Family Medical History / Comment(s): stroke, lupus, lymes disease Medications and Allergies Home Medications Medication Instructions Recorded Confirmed Type Albuterol Inhaler [Ventolin Hfa 1 - 2 puff INHALATION RT-Q6H PRN 03/17/18 09/12/22 Rx Inhaler] #1 inhaler Dicyclomine [Bentyl] 10 mg PO Q6HR PRN 07/24/18 09/12/22 History Fluticasone Propionate 1 spray EA NOSTRIL DAILY 07/03/21 09/12/22 History Montelukast [Singulair] 10 mg PO HS 07/03/21 09/12/22 History Naproxen 500 mg PO DAILY PRN 07/03/21 09/12/22 History oxyCODONE-APAP 7.5-325MG [Percocet 1 tab PO Q6HR PRN 07/03/21 09/12/22 History 7.5-325 mg] Sulfamethox-Tmp 800-160Mg [Bactrim 1 tab PO Q12HR #6 tab 07/10/21 09/12/22 Rx DS 800-160 mg] Etonogestrel [Nexplanon] 68 mg SQ DIRECTED 09/12/22 09/12/22 History Omeprazole [PriLOSEC] 10 mg PO DAILY PRN 09/12/22 09/12/22 History Allergies Allergy/AdvReac Type Severity Reaction Status Date / Time cinnamon Allergy Anaphylaxis Verified 09/12/22 10:40 ciprofloxacin [From Cipro] Allergy Rash/Hives Verified 09/12/22 10:40 ciprofloxacin HCl Allergy Rash/Hives Verified 09/12/22 10:40 [From Cipro] Fish Containing Products Allergy Anaphylaxis Verified 09/12/22 10:40 [Fish] Penicillins Allergy Unknown Verified 09/12/22 10:40 Childhood shellfish derived [Shellfish] Allergy Anaphylaxis Verified 09/12/22 10:40 Tetanus Vaccines and Toxoid Allergy Unknown Verified 09/12/22 10:40 [Tetanus Vaccines & Toxoid] Childhood Physical Examination - Knee right Appearance: effusion Effusion grade: trace Tenderness with palpation: medial, lateral Pain: throughout ROM Gait: limping ROM: extension: -5 degrees ROM: flexion: 130 degrees Crepitus with motion: Yes Strength: extension: 5/5 Strength: flexion: 5/5 Meniscal tests: medial meniscal tests: positive, lateral meniscal tests: positive Results The patient is a well-developed well-nourished female approximately 5 foot 7, 228 pounds of endomorphic habitus. HEENT exam is nonfocal, neck is supple. She has painless passive motion of the right hip. Straight leg raise is negative. Her distal neurovascular appears intact right lower extremity. - Diagnostic results Knee MRI: image reviewed (MRI of the right knee by report shows evidence of a c ane when cyst adjacent to the ACL with mild increased ACL signal. No definite meniscal tears noted.) Assessment and Plan Assessment: Right knee internal derangement/synovitis Right knee intra-articular ganglion cyst/ACL sprain Plan: I talked to the patient at length regarding her condition along with treatment options. She remains quite some to make despite previous conservative measures including bracing, medications, an injection, and home exercises. After thorough discussion she opted to proceed with surgery. We'll plan to proceed with arthroscopic evaluation of the right knee with probable partial synovectomy/ganglion excision. We will likely perform as an outpatient procedure. Risks and benefits were discussed at length limbs turns.
[~2022-09-14 09:26] MED LIST changes: +DEXAMETHASONE SOD PHOSPHATE 4 MG/ML 1 ML VIAL IV ONE; +LIDOCAINE 1% (10MG/ML) FOR IV START INTRADERMA PRN; +MIDAZOLAM 2 MG/2 ML VIAL IV PRN; +ONDANSETRON 4 MG/2 ML VIAL IVP ONE
[2022-09-14] MEDS ORDERED: LACTATED RINGERS 1,000 ML IV ONE (10:18)
[2022-09-14] MEDS ORDERED: SCOPOLAMINE 1 MG/72 HR PATCH TRANSDERM ONE (10:56)
[2022-09-14] MEDS ORDERED: ROPIVACAINE 5 MG/ML 30 ML VIAL ONE (11:59)
[2022-09-14] MEDS ORDERED: LIDOCAINE 2% INJ 20 MG/ML (2 ML VIAL) ONE (11:59)
[2022-09-14] MEDS ORDERED: PROPOFOL 10 MG/ML 20 ML VIAL IV ONE (11:59)
[2022-09-14] MEDS ORDERED: HYDROmorphone (PF) 1 MG/ML ONE (11:59)
[2022-09-14] MEDS ORDERED: MIDAZOLAM 2 MG/2 ML VIAL ONE (11:59)
[2022-09-14] MEDS ORDERED: KETOROLAC 15 MG/ML 1 ML VIAL ONE (11:59)
[2022-09-14] MEDS ORDERED: EPINEPHrine (PF) 1 ML in SODIUM CHLORIDE 0.9% IRRIGATIO 3,000 ML IRRIGATION ONE ×4 (12:10)
--- NOTE | 2022-09-14 12:42 | P.OP ---
Date of Procedure: 09/14/22 Preoperative Diagnosis: Right knee internal derangement/synovitis Postoperative Diagnosis: Right knee anterior medial meniscal tear, marked synovitis of the medial, lateral, and patellofemoral compartments, grade 2 chondral injury distal lateral portion medial femoral condyle Procedure(s) Performed: Right knee arthroscopic medial femoral chondrectomy/partial medial meniscectomy/partial synovectomy of the medial, lateral, and patellofemoral compartments Anesthesia: QUIN Surgeon: Brown Mei Pharmacovigilance Specialist #1: Regan Bravo Estimated Blood Loss (ml): 10 Pathology: none sent Condition: stable Disposition: PACU Indications for Procedure: The patient's a 32-year-old female who presents with progressive right knee pain and mechanical symptoms despite conservative measures. A discussion of the risks and benefits of operative intervention versus continued conservative measures was made with patient. She opted to proceed with surgery. Operative risks to include infection, neurovascular injury, development of blood clots, possible incomplete resolution of symptoms, possible worsening symptoms and need for subsequent procedures was discussed. Informed consent was obtained. Operative Findings: As below Description of Procedure: The patient was brought to the operating room, and after induction of general anesthesia examined the right knee. Collaterals were stable, Kaitlyn was negative, and posterior drawer was negative. The right lower extremity was prepped and draped in a normal fashion. A superior lateral portal was made through a 3 mm skin incision superior and lateral to the patella. This was used for outflow. A lateral portal was made through a 5 mm vertical skin incision lateral to the patella tendon above the joint line. Diagnostic arthroscopy was performed. On inspection of the medial compartment, a radial tear involving the anterior aspect of the medial meniscus in the white-white junction was noted. This was debrided back to stable base with a motorized shaver. The remaining medial meniscus was stable and intact. A 4 x 6 mm grade 2 chondral injury was noted involving the lateral distal aspect medial femoral condyle. There was a loose chondral flap that was debrided back to stable base with a motorized shaver. Marked synovitis involving the anterior medial compartment was debrided with a motorized shaver. On inspection of the notch, the anterior cruciate ligament appeared to be intact. A small ganglion cyst was noted anterior to the ACL on the tibial spine. This was resected with a motorized shaver. On inspection of the lateral compartment, there was a small grade 2 chondral defect involving the distal lateral portion of the lateral femoral condyle. Marked synovitis involving the anterolateral compartment was debrided with a motorized shaver. The lateral meniscus was stable and intact.. On inspection of the patellofemoral articulation, Eric synovitis was debrided with motorized shaver. There was chondral fibrillation, however no loose chondral fragment. The gutters were clear debris. The knee was then thoroughly irrigated. The portals were closed with Steri-Strips. A sterile dressing was applied in addition to a compression stocking. The patient was awoken from general anesthesia and transferred to recovery room in good condition. Blood loss was estimated at 10 mL. No complications were incurred.
[2022-09-14 12:51] VITALS: TEMP 97
[2022-09-14] MEDS: HYDROmorphone 0.5 MG/0.5 ML SYRINGE IVP PRN ×5 (12:56→13:47)
--- NOTE | 2022-09-14 14:24 | P.ANPRN ---
Procedure Note - Anesthesia - Nerve Block Performed Right Adductor Canal Single Time Out Performed: Yes ([id number]) Date of Procedure: 09/14/22 Procedure Start Time: 13:50 Procedure Stop Time: 13:55 Location of Patient: PreOp Indication: Acute Post-Operative Pain, Dx/Pain Location (right knee pain), Requested by Surgeon Sedation Type: Sedate with meaningful contact maintained Preparation: Sterile Prep Position: Supine Catheter: None Needle Types: Pajunk Needle Gauge: 21 Ultrasound used to visualize needle placement: Yes Ultrasound used to observe medication spread: Yes Injectate: Other (see comment) (20ml 0.25% ropivacaine) Blood Aspirated: No Pain Paresthesia on Injection Noted: No Resistance on Injection: Normal Image Stored and Saved: Yes Events: Uneventful and Well Tolerated
[2022-09-14 14:35] VITALS: RESP 18
[2022-09-14 14:51] VITALS: BP 132/78; PULSE 78
== END 2022-09-14 15:16 | disposition home or self-care (01) ==
LOC: OR 09:26
PROVIDERS: ATTEND Orthopaedic Surgery
DX: M23.91 Unspecified internal derangement of right knee (principal); M65.9 Synovitis and tenosynovitis, unspecified; S83.241A Other tear of medial meniscus, current injury, right knee, initial encounter; G89.18 Other acute postprocedural pain; J45.909 Unspecified asthma, uncomplicated; K21.9 Gastro-esophageal reflux disease without esophagitis; F17.200 Nicotine dependence, unspecified, uncomplicated; Z82.49 Family history of ischemic heart disease and other diseases of the circulatory system; Z87.442 Personal history of urinary calculi; Z82.3 Family history of stroke; Z79.51 Long term (current) use of inhaled steroids; Z79.899 Other long term (current) drug therapy; Z88.1 Allergy status to other antibiotic agents; Z88.0 Allergy status to penicillin; Z91.013 Allergy to seafood; Z88.7 Allergy status to serum and vaccine
CPT/HCPCS: 64447; 81025; 76942; 29881; J2250; J1100; J0690; J2405; J0171; J1170 ×2; J2795; J1885; J2704; J2001

== ENCOUNTER → 2023-05-20 | Outpatient (CLI) | payer MEDICARE, OTHER ==
--- NOTE | 2023-05-20 09:08 | XR ---
EXAMINATION TYPE: XR chest 2V DATE OF EXAM: 05/20/2023 COMPARISON: 07/25/2022 TECHNIQUE: PA and lateral views submitted. HISTORY: Cough FINDINGS: The lungs are clear and there is no pneumothorax, pleural effusion, or focal pneumonia. Heart size normal and no overt failure. Osseous structures demonstrate hypertrophic and degenerative changes of the spine. IMPRESSION: 1. No acute process.
== END | disposition home or self-care (01) ==
LOC: RADXRMAIN 08:33
PROVIDERS: ATTEND Internal Medicine
DX: J20.9 Acute bronchitis, unspecified (principal); R05.9 Cough, unspecified
CPT/HCPCS: 71046

== ENCOUNTER 2023-07-02 17:44 | Emergency (ER) | payer MEDICARE, OTHER ==
[2023-07-02 18:29] LABS: Basophils # (A) 0.1 k/uL (0-0.2); Basophils % (A) 0 %; Eosinophils # (A) 0.2 k/uL (0-0.7); Eosinophils % (A) 1 %; HCT 47.3 % (34.0-46.0); Lymphocytes # (A) 3.7 k/uL (1.0-4.8); Lymphocytes % (A) 31 %; MCH 32.3 pg (25.0-35.0); MCHC 33.7 g/dL (31.0-37.0); MCV 95.7 fL (80.0-100.0); Mean Platelet Volume 8.4; Monocytes # (A) 0.6 k/uL (0-1.0); Monocytes % (A) 5 %; Neutrophils # (A) 7.1 k/uL (1.3-7.7); Neutrophils % (A) 60 %; Platelet Count 313 k/uL (150-450); RBC 4.95 m/uL (3.80-5.40); WBC 11.8 k/uL (3.8-10.6)
[2023-07-02 18:40] LABS: ALT 19 U/L (4-34); AST 21 U/L (14-36); African American GFR (CKD) >90 (>60 ml/min/1.73 sqM); Albumin 4.3 g/dL (3.5-5.0); Alkaline Phosphatase 63 U/L (38-126); Anion Gap 12 mmol/L; Blood Urea Nitrogen 7 mg/dL (7-17); Calcium 9.4 mg/dL (8.4-10.2); Carbon Dioxide 22 mmol/L (22-30); Chloride 106 mmol/L (98-107); Glucose 77 mg/dL (74-99); Non-African American GFR(CKD) >90 (>60 ml/min/1.73 sqM); Potassium 3.7 mmol/L (3.5-5.1); Sodium 140 mmol/L (137-145); Total Bilirubin 0.5 mg/dL (0.2-1.3); Total Protein 7.1 g/dL (6.3-8.2)
[2023-07-02 19:38] VITALS: RESP 18
[2023-07-02 20:01] LABS: Appearance,Urine Cloudy (Clear); Bacteria,Urine Rare /hpf; Bilirubin,Urine Negative (Negative); Blood,Urine Negative (Negative); Color,Urine Colorless; Glucose,Urine (UA) Negative (Negative); Ketones,Urine Negative (Negative); Leukocyte Esterase,Urine Negative (Negative); Mucus,Urine Rare /hpf; Nitrite,Urine Negative (Negative); Protein,Urine Negative (Negative); RBC,Urine 1 /hpf (0-5); Specific Gravity,Urine 1.008 (1.001-1.035); Squamous Epithelial Cell,Urine 1 /hpf (0-4); Urobilinogen,Urine <2.0 mg/dL (<2.0); WBC,Urine 1 /hpf (0-5)
--- NOTE | 2023-07-02 21:49 | ED ---
General Adult HPI - General Chief complaint: Vaginal Bleeding Stated complaint: Excessive Vaginal Bleeding Time Seen by Provider: 07/02/23 19:02 Source: patient, RN notes reviewed Mode of arrival: ambulatory Limitations: no limitations - History of Present Illness Initial comments: 33-year-old female presents to the emergency department for evaluation of vaginal bleeding. She states that this has been on and off for the past couple months. She states that this most recent time she has been bleeding for the past 10 days. She admits to some lower abdominal cramping. Does report a history of irregular and heavy periods she states that she had a Nexplanon placed 2 years ago which improved her symptoms but states that recently she has had breakthrough symptoms. 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 Denies fever, chills. - Related Data Home Medications Medication Instructions Recorded Confirmed Dicyclomine [Bentyl] 10 mg PO Q6HR PRN 07/24/18 09/14/22 Fluticasone Propionate 1 spray EA NOSTRIL DAILY 07/03/21 09/14/22 Montelukast [Singulair] 10 mg PO HS 07/03/21 09/14/22 Naproxen 500 mg PO DAILY PRN 07/03/21 09/14/22 oxyCODONE-APAP 7.5-325MG [Percocet 1 tab PO Q6HR PRN 07/03/21 09/14/22 7.5-325 mg] Etonogestrel [Nexplanon] 68 mg SQ DIRECTED 09/12/22 09/14/22 Omeprazole [PriLOSEC] 10 mg PO DAILY PRN 09/12/22 09/14/22 Previous Rx's Medication Instructions Recorded Albuterol Inhaler [Ventolin Hfa 1 - 2 puff INHALATION RT-Q6H PRN 03/17/18 Inhaler] #1 inhaler Sulfamethox-Tmp 800-160Mg [Bactrim 1 tab PO Q12HR #6 tab 07/10/21 DS 800-160 mg] Allergies Allergy/AdvReac Type Severity Reaction Status Date / Time cinnamon Allergy Anaphylaxis Verified 09/14/22 10:29 ciprofloxacin [From Cipro] Allergy Rash/Hives Verified 09/14/22 10:29 ciprofloxacin HCl Allergy Rash/Hives Verified 09/14/22 10:29 [From Cipro] Fish Containing Products Allergy Anaphylaxis Verified 09/14/22 10:29 [Fish] Penicillins Allergy Unknown Verified 09/14/22 10:29 Childhood shellfish derived [Shellfish] Allergy Anaphylaxis Verified 09/14/22 10:29 Tetanus Vaccines and Toxoid Allergy Unknown Verified 09/14/22 10:29 [Tetanus Vaccines & Toxoid] Childhood Review of Systems ROS Statement: Those systems with pertinent positive or pertinent negative responses have been documented in the HPI. ROS Other: All systems not noted in ROS Statement are negative. Past Medical History Past Medical History: Asthma, Musculoskeletal Disorder Additional Past Medical History / Comment(s): buldging discs, left breast lump; hernia, KIDNEY STONES History of Any Multi-Drug Resistant Organisms: None Reported Past Surgical History: Adenoidectomy, Section, Orthopedic Surgery, Tonsillectomy Additional Past Surgical History / Comment(s): bilateral foot/ankle/leg surgery Past Anesthesia/Blood Transfusion Reactions: No Reported Reaction Past Psychological History: No Psychological Hx Reported Smoking Status: Current every day smoker - Past Family History Mother Family Medical History: Cancer, Hypertension, Myocardial Infarction ([place]) Additional Family Medical History / Comment(s): stroke, lupus, lymes disease General Exam Limitations: no limitations General appearance: alert, in no apparent distress Head exam: Present: atraumatic, normocephalic, normal inspection Eye exam: Present: normal appearance, PERRL, EOMI. Absent: scleral icterus, conjunctival injection, periorbital swelling ENT exam: Present: normal exam, mucous membranes moist Neck exam: Present: normal inspection. Absent: tenderness, meningismus, lymphadenopathy Respiratory exam: Present: normal lung sounds bilaterally. Absent: respiratory distress, wheezes, rales, rhonchi, stridor Cardiovascular Exam: Present: regular rate, normal rhythm, normal heart sounds. Absent: systolic murmur, diastolic murmur, rubs, gallop, clicks GI/Abdominal exam: Present: soft, normal bowel sounds. Absent: distended, tenderness, guarding, rebound, rigid External exam: Present: normal external exam Speculum exam: Present: vaginal bleeding (mild) Extremities exam: Present: normal inspection, full ROM, normal capillary refill. Absent: tenderness, pedal edema, joint swelling, calf tenderness Back exam: Present: normal inspection Neurological exam: Present: alert, oriented X3 Psychiatric exam: Present: normal affect, normal mood Skin exam: Present: warm, dry, intact, normal color. Absent: rash Course Vital Signs 07/02/23 07/02/23 07/02/23 17:50 19:21 22:10 Temperature 98 F 98.3 F Pulse Rate 93 86 82 Respiratory 20 18 18 Rate Blood Pressure 148/84 138/96 136/90 O2 Sat by Pulse 98 98 98 Oximetry Medical Decision Making - Medical Decision Making Was pt. sent in by a medical professional or institution (, PA, EMERGENCY VEHICLE DISPATCHER, urgent care, hospital, or snf...) When possible be specific @ -No Did you speak to anyone other than the patient for history (EMS, parent, family, police, friend...)? What history was obtained from this source @ -No Did you review nursing and triage notes (agree or disagree)? Why? @ -I reviewed and agree with nursing and triage notes Were old charts reviewed (outside hosp., previous admission, EMS record, old EKG, old radiological studies, urgent care reports/EKG's, snf records)? Report findings @ -No old charts were reviewed Differential Diagnosis (chest pain, altered mental status, abdominal pain women, abdominal pain men, vaginal bleeding, weakness, fever, dyspnea, syncope, headache, dizziness, GI bleed, back pain, seizure, CVA, palpatations, mental health, musculoskeletal)? @ -Differential Vaginal Bleeding: Spontaneous , threatened , molar , ectopic , bloody show, incompetent cervix, abruptioplacenta, placenta previa, uterine r upture, dysfunctional uterine bleeding, hemorrhage, uterine fibroids, this is not meant to be an all-inclusive list. EKG interpreted by me (3pts min.). @ -none X-rays interpreted by me (1pt min.). @ -None done CT interpreted by me (1pt min.). @ -None done U/S interpreted by me (1pt. min.). @ -None done What testing was considered but not performed or refused? (CT, X-rays, U/S, labs)? Why? @ -None What meds were considered but not given or refused? Why? @ -None Did you discuss the management of the patient with other professionals (josh monroy i.e. , PA, EMERGENCY VEHICLE DISPATCHER, lab, RT, psych nurse, high school social science teacher, diver assistant, teacher, credit administration officer, case management assistant)? Give summary @ -No Was smoking cessation discussed for >3mins.? @ -No Was critical care preformed (if so, how long)? @ -No Were there social determinants of health that impacted care today? How? (Homelessness, low income, unemployed, alcoholism, drug addiction, transportatio n, low edu. Level, literacy, decrease access to med. care, half-way, rehab)? @ -No Was there de-escalation of care discussed even if they declined (Discuss DNR or withdrawal of care, Hospice)? DNR status @ -No What co-morbidities impacted this encounter? (DM, HTN, Smoking, COPD, CAD, Cancer, CVA, ARF, Chemo, Hep., AIDS, mental health diagnosis, sleep apnea, morbid obesity)? @ -None Was patient admitted / discharged? Hospital course, mention meds given and route, prescriptions, significant lab abnormalities, going to OR and other pertinent info. @ -Discharged. Patient presented to the emergency department for evaluation of vaginal bleeding. Laboratory studies obtained. Patient is hemodynamically stable. CBC shows WBC 11.8, hemoglobin 16.0, hematocrit 47.3; CMP within normal limits; UA shows negative nitrite, negative leukocyte esterase. Patient advised to follow-up with the patient with gynecology. He is understanding and agreeable with plan. Patient stable at discharge. Case discussed with Dr. River Undiagnosed new problem with uncertain prognosis? @ -No Drug Therapy requiring intensive monitoring for toxicity (Heparin, Nitro, Insulin, Cardizem)? @ -No Were any procedures done? @ -No Diagnosis/symptom? @ -Menometrorrhagia Acute, or Chronic, or Acute on Chronic? @ -Acute Uncomplicated (without systemic symptoms) or Complicated (systemic symptoms)? @ -Uncomplicated Side effects of treatment? @ -No Exacerbation, Progression, or Severe Exacerbation? @ -No Poses a threat to life or bodily function? How? (Chest pain, USA, NC, pneumonia, PE, COPD, DKA, ARF, appy, cholecystitis, CVA, Diverticulitis, Homicidal, Suicidal, threat to staff... and all critical care pts) @ -No - Lab Data Result diagrams: 07/02/23 18:10 07/02/23 18:19 Lab Results 07/02/23 07/02/23 07/02/23 Range/Units 18:10 18:19 18:19 WBC 11.8 H (3.8-10.6) k/uL RBC 4.95 (3.80-5.40) m/uL Hgb 16.0 (11.4-16.0) gm/dL Hct 47.3 H (34.0-46.0) % MCV 95.7 (80.0-100.0) fL MCH 32.3 (25.0-35.0) pg MCHC 33.7 (31.0-37.0) g/dL RDW 12.0 (11.5-15.5) % Plt Count 313 (150-450) k/uL MPV 8.4 Neutrophils % 60 % Lymphocytes % 31 % Monocytes % 5 % Eosinophils % 1 % Basophils % 0 % Neutrophils # 7.1 (1.3-7.7) k/uL Lymphocytes # 3.7 (1.0-4.8) k/uL Monocytes # 0.6 (0-1.0) k/uL Eosinophils # 0.2 (0-0.7) k/uL Basophils # 0.1 (0-0.2) k/uL Sodium 140 (137-145) mmol/L Potassium 3.7 (3.5-5.1) mmol/L Chloride 106 (98-107) mmol/L Carbon Dioxide 22 (22-30) mmol/L Anion Gap 12 mmol/L BUN 7 (7-17) mg/dL Creatinine 0.56 (0.52-1.04) mg/dL Est GFR (CKD-EPI)AfAm >90 (>60 ml/min/1.73 sqM) Est GFR (CKD-EPI)NonAf >90 (>60 ml/min/1.73 sqM) Glucose 77 (74-99) mg/dL Calcium 9.4 (8.4-10.2) mg/dL Total Bilirubin 0.5 (0.2-1.3) mg/dL AST 21 (14-36) U/L ALT 19 (4-34) U/L Alkaline Phosphatase 63 (38-126) U/L Total Protein 7.1 (6.3-8.2) g/dL Albumin 4.3 (3.5-5.0) g/dL Urine Color Urine Appearance (Clear) Urine pH (5.0-8.0) Ur Specific Premont (1.001-1.035) Urine Protein (Negative) Urine Glucose (UA) (Negative) Urine Ketones (Negative) Urine Blood (Negative) Urine Nitrite (Negative) Urine Bilirubin (Negative) Urine Urobilinogen (<2.0) mg/dL Ur Leukocyte Esterase (Negative) Urine RBC (0-5) /hpf Urine WBC (0-5) /hpf Ur Squamous Epith Cells (0-4) /hpf Urine Bacteria (None) /hpf Urine Mucus (None) /hpf Urine HCG, Qual (Not Detectd) Blood Type A Positive Blood Type Recheck A Pos Bld Type Recheck Status No Antibody Screen NEGATIVE Spec Expiration Date 07/05/2023 - 231807/02/23 07/02/23 Range/Units 19:35 19:35 WBC (3.8-10.6) k/uL RBC (3.80-5.40) m/uL Hgb (11.4-16.0) gm/dL Hct (34.0-46.0) % MCV (80.0-100.0) fL MCH (25.0-35.0) pg MCHC (31.0-37.0) g/dL RDW (11.5-15.5) % Plt Count (150-450) k/uL MPV Neutrophils % % Lymphocytes % % Monocytes % % Eosinophils % % Basophils % % Neutrophils # (1.3-7.7) k/uL Lymphocytes # (1.0-4.8) k/uL Monocytes # (0-1.0) k/uL Eosinophils # (0-0.7) k/uL Basophils # (0-0.2) k/uL Sodium (137-145) mmol/L Potassium (3.5-5.1) mmol/L Chloride (98-107) mmol/L Carbon Dioxide (22-30) mmol/L Anion Gap mmol/L BUN (7-17) mg/dL Creatinine (0.52-1.04) mg/dL Est GFR (CKD-EPI)AfAm (>60 ml/min/1.73 sqM) Est GFR (CKD-EPI)NonAf (>60 ml/min/1.73 sqM) Glucose (74-99) mg/dL Calcium (8.4-10.2) mg/dL Total Bilirubin (0.2-1.3) mg/dL AST (14-36) U/L ALT (4-34) U/L Alkaline Phosphatase (38-126) U/L Total Protein (6.3-8.2) g/dL Albumin (3.5-5.0) g/dL Urine Color Colorless Urine Appearance Cloudy H (Clear) Urine pH 6.0 (5.0-8.0) Ur Specific Premont 1.008 (1.001-1.035) Urine Protein Negative (Negative) Urine Glucose (UA) Negative (Negative) Urine Ketones Negative (Negative) Urine Blood Negative (Negative) Urine Nitrite Negative (Negative) Urine Bilirubin Negative (Negative) Urine Urobilinogen <2.0 (<2.0) mg/dL Ur Leukocyte Esterase Negative (Negative) Urine RBC 1 (0-5) /hpf Urine WBC 1 (0-5) /hpf Ur Squamous Epith Cells 1 (0-4) /hpf Urine Bacteria Rare H (None) /hpf Urine Mucus Rare H (None) /hpf Urine HCG, Qual Not Detected (Not Detectd) Blood Type Blood Type Recheck Bld Type Recheck Status Antibody Screen Spec Expiration Date Disposition Clinical Impression: Menometrorrhagia Disposition: HOME SELF-CARE Condition: Stable Instructions (If sedation given, give patient instructions): Dysmenorrhea (ED) Additional Instructions: Please follow up with your primary care provider. Return to the emergency department for new or worsening symptoms. Is patient prescribed a controlled substance at d/c from ED?: No Referrals: Mik De La Garza DO [Primary Care Provider] - 1-2 days
[2023-07-02 22:14] VITALS: BP 136/90; PULSE 82; TEMP 98.3
== END 2023-07-02 22:11 | disposition home or self-care (01) ==
LOC: EC 17:44
DX: N92.1 Excessive and frequent menstruation with irregular cycle (principal); J45.909 Unspecified asthma, uncomplicated; F17.200 Nicotine dependence, unspecified, uncomplicated; Z88.0 Allergy status to penicillin; Z88.1 Allergy status to other antibiotic agents; Z88.7 Allergy status to serum and vaccine; Z91.013 Allergy to seafood; Z91.048 Other nonmedicinal substance allergy status
CPT/HCPCS: 36415; 80053; 81001; 81025; 85025; 86850; 86900; 86901; 99284

== ENCOUNTER → 2023-07-23 | Outpatient (CLI) | payer MEDICARE, OTHER ==
--- NOTE | 2023-07-23 14:15 | XR ---
EXAMINATION TYPE: XR chest 2V DATE OF EXAM: 07/23/2023 COMPARISON: 05/20/2023 HISTORY: 33-year-old female R05.9, cough TECHNIQUE: Frontal and lateral views FINDINGS: The cardiomediastinal silhouette, aorta, and pulmonary vasculature are within normal limits. Hazy low er lung densities related to overlying soft tissue. Otherwise, lungs and pleural spaces are clear. IMPRESSION: No acute cardiopulmonary process.
== END | disposition home or self-care (01) ==
LOC: RADXRMAIN 10:07
PROVIDERS: ATTEND Internal Medicine
DX: R05.9 Cough, unspecified (principal)
CPT/HCPCS: 71046

== ENCOUNTER → 2023-09-12 | Outpatient (CLI) | payer MEDICARE, OTHER ==
[2023-09-12 15:53] LABS: Protein, Total 6.1 g/dL (6.2-8.2)
[2023-09-12 16:11] LABS: Hepatitis A Antibody IgM Nonreactive (Nonreactive); Hepatitis B Core IgM Nonreactive (Nonreactive); Hepatitis B Surface Antigen Nonreactive (Nonreactive); Hepatitis C IgG Antibody Nonreactive (Nonreactive)
[2023-09-12 16:22] LABS: % Iron Saturation 56.25 (12.00-45.00); ALT 17 U/L (8-44); AST 17 U/L (13-35); Albumin 4.1 g/dL (3.8-4.9); Albumin/Globulin Ratio 1.86 Ratio (1.60-3.17); Alkaline Phosphatase 65 U/L (41-126); BUN/Creat Ratio 14.83 Ratio (12.00-20.00); Blood Urea Nitrogen 8.9 mg/dL (9.0-27.0); Calcium 9.7 mg/dL (8.7-10.3); Carbon Dioxide 24.3 mmol/L (21.6-31.8); Chloride 106 mmol/L (96-109); Ferritin 49.4 ng/mL (10.0-291.0); Globulin 2.2 g/dL (1.6-3.3); Glucose 83 mg/dL (70-110); Iron 189 UG/DL (50-170); Potassium 4.4 mmol/L (3.5-5.5); Rheumatoid Factor, Qnt <15 IU/mL (0-15); Sodium 140 mmol/L (135-145); Total Bilirubin 0.7 mg/dL (0.3-1.2); Total Iron Binding Capacity 336 UG/DL (228-460); Total Protein 6.3 g/dL (6.2-8.2)
[2023-09-12 16:34] LABS: Basophils # (A) 0.04 X 10*3/uL (0.00-0.10); Basophils % (A) 0.4 %; Eosinophils % (A) 1.1 %; HCT 46.6 % (37.2-46.3); HGB 15.4 g/dL (12.0-15.0); Lymphocytes # (A) 2.51 X 10*3/uL (0.90-5.00); Lymphocytes % (A) 28.1 %; MCH 31.1 pg (27.0-32.0); MCV 94.1 FL (80.0-97.0); Mean Platelet Volume 10.1 FL (9.5-12.2); Monocytes # (A) 0.59 X 10*3/uL (0.20-1.00); Monocytes % (A) 6.6 %; NRBC Per 100 WBC 0 X 10*3/uL (0.00-0.01); Neutrophils # (A) 5.65 X 10*3/uL (1.80-7.70); Neutrophils % (A) 63.5 %; Platelet Count 346 X 10*3/uL (140-440); RBC 4.95 X 10*6/uL (4.10-5.20); RDW 12.2 % (11.5-14.5); WBC 8.92 X 10*3/uL (4.50-10.00)
[2023-09-12 17:05] LABS: Erythrocyte Sedimentation Rate 6 mm/Hr (0-20)
[2023-09-12 21:34] LABS: HIV 2 AB Non-Reactive (Non-Reactive); HIV AB P24 Non-Reactive (Non-Reactive); HIV P24 AG Non-Reactive (Non-Reactive)
[2023-09-12 21:39] LABS: Cyclic Citrull Pep IgG Unit <1.5 U/mL (<=3.9); Cyclic Citrullinated Pep IgG Negative
[2023-09-13 15:48] LABS: Albumin 3.61 g/dL (3.80-4.90)
== END | disposition home or self-care (01) ==
LOC: LABWHC1 08:32
PROVIDERS: ATTEND Internal Medicine
DX: G62.9 Polyneuropathy, unspecified (principal)
CPT/HCPCS: 36415; 80053; 80074; 82607; 82728; 82746; 83036; 83090; 83540; 83550; 83921; 84165; 84443; 85025; 85652; 86038; 86200; 86235; 86431; 86618; 87390

== ENCOUNTER → 2023-09-19 | Outpatient (CLI) | payer MEDICARE, OTHER ==
[2023-09-19 15:22] LABS: HCT 47.4 % (37.2-46.3); HGB 15.7 g/dL (12.0-15.0); MCH 31.5 pg (27.0-32.0); MCHC 33.1 g/dL (32.0-37.0); Mean Platelet Volume 10.3 FL (9.5-12.2); NRBC Per 100 WBC 0 X 10*3/uL (0.00-0.01); Platelet Count 340 X 10*3/uL (140-440); RBC 4.99 X 10*6/uL (4.10-5.20); RDW 12.2 % (11.5-14.5); WBC 10.05 X 10*3/uL (4.50-10.00)
[2023-09-19 16:39] LABS: % Iron Saturation 30.29 (12.00-45.00)
--- NOTE | 2023-10-07 10:14 | US ---
EXAMINATION TYPE: US extremity nonvasc complete LT (ankle) DATE OF EXAM: 09/19/2023 COMPARISON: None CLINICAL INDICATION: Female, 33 years old with history of [id number] TEAR OF PERONEAL TENDON, LEFT; inju ry with surgical foot reconstruction; pt states post tib tendon tear, tendon reattachment both medial ly and laterally, persisting pain and limited ROM TECHNIQUE: Alteration Manager notes: Per order, scanned the left peroneal tendons and post tib tendon. FINDINGS: Mild nonspecific soft tissue edema adjacent to the supramalleolar peroneal tendons. Both peroneus matthew darcie and peroneus brevis tendons otherwise appear intact. No retracted tear is seen. Alteration Manager notes: Left posterior tibial tendon appears to be torn at the level of the medial malleol us. Fluid and bony irregularity seen as well. ?FDL tendon surgically anchored more anteriorly? IMPRESSION: 1. The posterior tibial tendon may be torn at the level of the medial malleolus. Query surgical tenod esis of the FDL more anteriorly. 2. The peroneal tendons appear intact.
== END | disposition home or self-care (01) ==
LOC: RADUSWWP 11:51
PROVIDERS: ATTEND Podiatrist Foot & Ankle Surgery
DX: M76.822 Posterior tibial tendinitis, left leg (principal); S86.312A Strain of muscle(s) and tendon(s) of peroneal muscle group at lower leg level, left leg, initial encounter; E83.19 Other disorders of iron metabolism
CPT/HCPCS: 36415; 81256; 83540; 83550; 85027

== ENCOUNTER → 2023-10-03 | Outpatient (CLI) | payer MEDICARE, OTHER ==
--- NOTE | 2023-10-03 12:21 | US ---
EXAMINATION TYPE: US abdomen limited DATE OF EXAM: 10/03/2023 COMPARISON: NONE CLINICAL INDICATION: Female, 33 years old with history of K42.9 UMBILICAL HERNIA WITHOUT OBSTRUCTION OR GANG; Pain near umbilicus/RLQ. History of hernia repair 2017 TECHNIQUE: FINDINGS: Scanned within patient's area of concern, umbilical area/RLQ, no significant abnormality b y ultrasound at this time. no changes with valsalva IMPRESSION: As above
== END | disposition home or self-care (01) ==
LOC: RADUSWWP 10:45
PROVIDERS: ATTEND Internal Medicine
DX: K42.9 Umbilical hernia without obstruction or gangrene (principal)
CPT/HCPCS: 76705

== ENCOUNTER → 2023-12-12 | Day surgery (SDC) | payer MEDICARE, OTHER ==
[~2023-12-12] MED LIST changes: -DEXAMETHASONE SOD PHOSPHATE 4 MG/ML 1 ML VIAL IV ONE; -LACTATED RINGERS 1,000 ML IV SCH; -LIDOCAINE 1% (10MG/ML) FOR IV START INTRADERMA PRN; -MIDAZOLAM 2 MG/2 ML VIAL IV PRN; -ONDANSETRON 4 MG/2 ML VIAL IVP ONE; +PROPOFOL 10 MG/ML 20 ML VIAL IV ONE
[2023-12-12 06:53] VITALS: TEMP 97.6
[2023-12-12] MEDS: LACTATED RINGERS 1,000 ML IV SCH (07:02)
[2023-12-12] MEDS: IV FLUID CONTINUATION 1,000 ML IV ONE (07:05)
[2023-12-12] MEDS: fentaNYL (PF) 50 MCG/ML 2 ML AMP IVP ONE (07:05)
[2023-12-12 07:58] VITALS: RESP 16
[2023-12-12] MEDS: HYDROmorphone 0.5 MG/0.5 ML SYRINGE IVP STA (08:03)
[2023-12-12 08:05] LABS: Basophils # (A) 0.1 k/uL (0-0.2); Basophils % (A) 0 %; Eosinophils # (A) 0.2 k/uL (0-0.7); Eosinophils % (A) 1 %; HCT 49.3 % (34.0-46.0); HGB 16.1 gm/dL (11.4-16.0); Lymphocytes # (A) 2.5 k/uL (1.0-4.8); Lymphocytes % (A) 19 %; MCH 31.1 pg (25.0-35.0); MCHC 32.6 g/dL (31.0-37.0); MCV 95.4 fL (80.0-100.0); Mean Platelet Volume 8.9; Monocytes # (A) 0.8 k/uL (0-1.0); Monocytes % (A) 6 %; Neutrophils # (A) 9.9 k/uL (1.3-7.7); Neutrophils % (A) 73 %; Platelet Count 325 k/uL (150-450); RBC 5.17 m/uL (3.80-5.40); RDW 12.3 % (11.5-15.5); Reticulocyte % 1.4 % (0.5-2.0); WBC 13.6 k/uL (3.8-10.6)
--- NOTE | 2023-12-12 08:06 | OP ---
OPERATIVE REPORT DATE OF SERVICE : PREOPERATIVE DIAGNOSIS: Myeloproliferative neoplasm. POSTOPERATIVE DIAGNOSIS: Myeloproliferative neoplasm. PROCEDURE PERFORMED: Bone marrow biopsy with general and local sedation. DESCRIPTION OF PROCEDURE: Ms. Morris was placed in the left lateral decubitus position with administration of general anesthesia intravenously. The right posterior superior iliac spine was palpated followed by palpation of the right posterior iliac crest. This area was marked with a non-permanent marker. Three swabs of Betadine followed by 3 swabs of alcohol and placement of sterile drape was performed. Then 1% lidocaine was applied to the periosteum. A 0.3 cm incision into the subcutaneous tissue was made. Initial advancement of 7-inch Jamshidi needle revealed no aspirate. Subsequent attempt produced a total of 18 mL of aspirate with particles. Initial attempt of obtaining core sample produced sample of approximately 0.3 cm. Subsequent attempt obtained core sample measuring approximately 1 cm. Ms. Morris tolerated the procedure without complications. She had less than 1 mL of blood loss. She will return to the postoperative area in stable condition. We will follow up on results of morphology, flow, FISH, cytogenetics, and NGS in clinic. MMODL / IJN: [id number] /
[2023-12-12 08:26] VITALS: BP 109/71; PULSE 71
== END ==
LOC: OR 06:09
PROVIDERS: ATTEND Internal Medicine
DX: D72.829 Elevated white blood cell count, unspecified (principal)
CPT/HCPCS: 81025; 85025; 85045; 38222; J3010; J2704; J1170

== ENCOUNTER → 2024-01-10 | Outpatient (CLI) | payer MEDICARE, OTHER ==
--- NOTE | 2024-01-10 13:40 | CT ---
EXAMINATION TYPE: CT ChestAbdPelvis w con DATE OF EXAM: 01/10/2024 COMPARISON: 05/25/2021 HISTORY: OTHER HEMOCHROMATOSIS CT DLP: 1382 mGycm CONTRAST: CT scan of the chest, abdomen and pelvis is performed with Oral Contrast and with IV Contrast, patien t injected with 100 mL of Isovue 300. CT Chest: LUNGS: The lungs are clear and free of infiltrate or atelectasis. No pulmonary nodule or mass is det ected. No pleural effusion or CT evidence of interstitial lung disease. MEDIASTINUM: Thoracic aorta is of normal caliber. The heart is not enlarged. No evidence for media stinal mass or adenopathy. HILAR STRUCTURES: No evidence for mass. No hilar adenopathy is appreciated. OTHER: No significant abnormality. CONTRAST CT ABDOMEN AND PELVIS FINDINGS: LIVER/GB: No calcified gallstones. No space occupying hepatic lesion. Biliary tree is of normal ca liber. PANCREAS: No inflammation. No distinct mass. SPLEEN: No splenic enlargement. No lesion seen. ADRENALS: No nodule. No thickening. KIDNEYS/BLADDER: No hydronephrosis. No nephrolithiasis. No disctinct renal mass. BOWEL: Normal appendix. Normal bowel caliber. No inflammation. GENITAL ORGANS: Left ovarian cyst measuring 4.7 cm. The uterus and right ovary are unremarkable. LYMPH NODES: No greater than 1cm abdominal or pelvic lymph nodes are appreciated. AORTA: No significant abnormality. OSSEOUS STRUCTURES: No significant abnormality is seen. OTHER: No significant additional abnormality is seen. IMPRESSION: 1. Left ovarian cyst measuring 4.7 cm.
== END | disposition home or self-care (01) ==
LOC: RADCTMAIN 11:23
PROVIDERS: ATTEND Internal Medicine
DX: N83.202 Unspecified ovarian cyst, left side (principal); E83.118 Other hemochromatosis
CPT/HCPCS: 71260; 74177; Q9967